=== PATIENT | female | born 1960 | race Caucasian/White ===

== ENCOUNTER → 2016-05-27 | Outpatient (CLI) | payer BC ==
[~2016-05-27] MED LIST: ACHD5005 PO; ACHYD1T PO; ADV1DS; ALB6.8IN; ALBU17AE23 IH; ALBU8.5H2; CALC-80; CARB200T6 PO; CARB400T PO; CETI10TA17; CRB200T; CYCL10TA9 PO; ESTR1TAB27 PO; FISH OIL 1,2001 EAC1; FLUT1DIS26; FURO-124 PO; FURO40TA4 PO; HCT25T; HCT25T PO; HYDR-3730 PO; HYDR-3816 PO; IBP200T; IBUP-30 PO; LISI10TA PO; LISI40TA; MAGN400T6 PO; MELO15TA14; MNTL10T; MONT10TA21 PO; MULT-298 PO; NF-ESOM40C PO; NFPRILOC40 PO; ONDA8TAB6 PO; OXYC-197 PO; PANT40TA2 PO; POTA10CA43 PO; POTA10TA10 PO; POTA99TA21 PO; PRD20T PO; PROP1TAB77; RNT150T; TYLENOL EXTRA STRENG; VLS80C
--- OUTSIDE RECORDS SUMMARY | 2016-05-27 14:14 | XMS REPORT | Continuity of Care Document ---
Author Author [facility] Organization [facility] Address Unknown Phone Unavailable Care Team Providers Care Lift Team Technician Name Role Phone Brenton Martinez PCP [phone] Source Comments Some departments are not documenting in the electronic medical record. If you do not see the information that you expected, contact Release of Information in the Health Information Management department at [phone] for further assistance in locating additional records.[facility] Active Allergies and Adverse Reactions Allergen Noted Date Severity Reactions Comments Ciprofloxacin 11/21/2014 Low PALPITATIONS, AGITATION Contrast Dye Iv, Iodine 01/28/2008 SHORTNESS OF BREATH Containing Demerol 07/08/2007 HIVES Iodine 07/08/2007 SHORTNESS OF BREATH Latex 07/08/2007 SHORTNESS OF BREATH, ITCHING Morphine 07/08/2007 HIVES Shellfish Containing 01/28/2008 ANAPHYLAXIS Products Vistaril 07/08/2007 MENTAL STATUS CHANGES Current Medications Prescription Sig. Disp. Refills Start End Date Status Date carbamazepine (TEGRETOL) Take 600 mg by mouth at Active 200 mg tablet bedtime daily. DAILY MULTIPLE PO Take 1 Tab by mouth Active daily. ADVAIR DISKUS 250-50 Inhale 1 Puff by mouth Active mcg/Dose DsDv Every 12 Hours. SINGULAIR 10 mg Tab Take 10 mg by mouth Active Daily. At bedtime furosemide (LASIX) 40 mg Take 40 mg by mouth daily Active tablet as needed. estradiol (ESTRACE) 1 mg Take 1 mg by mouth daily. Active tablet pantoprazole DR Take 20 mg by mouth twice Active (PROTONIX) 20 mg tablet daily. albuterol (VENTOLIN HFA, Inhale 2 Puffs by mouth Active PROAIR HFA) 90 every 6 hours as needed mcg/actuation inhaler for Wheezing. acetaminophen (TYLENOL) Take 2 Tabs by mouth 30 Tab 1 11/30/19 Active 325 mg tablet every 6 hours as needed 15 for Pain. lisinopril (PRINIVIL; Take 20 mg by mouth Active ZESTRIL) 20 mg tablet daily. LORATADINE (CLARITIN PO) Take by mouth. Active fluconazole (DIFLUCAN) Take 200 mg by mouth Active 200 mg tablet daily. HYDROcodone-acetaminophen Take 1 Tab by mouth every Active (+) (NORCO) 7.5-325 mg 6 hours as needed for tablet Pain meloxicam (MOBIC) 15 mg Take 1 Tab by mouth 90 Tab 3 02/04/20 Active tablet daily. 15 Active Problems Problem Noted Date Right leg swelling 11/21/2014 Asthma 11/21/2014 Inflammatory arthritis 11/20/2014 Septic joint (HCC) 11/20/2014 Tibia fracture 07/11/2007 Immunizations Name Dates Previously Given Next Due Pneumococcal Vaccine 11/26/2014 (23-Rajni Adult) Social History Tobacco Use Types Packs/Day Years Used Date Never Smoker Smokeless Tobacco: Never Used Alcohol Use Drinks/Week oz/Week Comments Yes rare Last Filed Vital Signs Vital Sign Reading Time Taken Blood Pressure 108/73 12/26/2014 10:13 AM CDT Pulse 69 12/26/2014 10:13 AM CDT Temperature 37.1 C (98.8 F) 12/26/2014 10:13 AM CDT Respiratory Rate 18 12/07/2014 11:28 AM CDT Height 1.626 m (5' 4") 12/26/2014 10:13 AM CDT Weight 78.926 kg (174 lb) 12/26/2014 10:13 AM CDT Body Mass Index 29.85 12/26/2014 10:13 AM CDT Oxygen Saturation 99% 11/29/2014 2:03 PM CDT Plan of Care Health Maintenance Due Date Last Done Comments Hepatitis C Screening 1960 Physical (Comprehensive) 10/26/1966 Exam Pertussis Vaccine 10/26/1970 Tetanus Vaccine 10/26/1976 Cervical Cancer Screening 10/26/1980 Breast Cancer Screening 1999 Colorectal Cancer 10/26/2009 Screening Influenza Vaccine 11/22/2015 Results from Last 3 Months Not on file
--- NOTE | 2016-05-27 17:55 | Diagnostic Imaging Report ---
INDICATION: Checkup of lower back surgery COMPARISON STUDY: Lumbar spine from 02-19-16. FINDINGS: Frontal and lateral views of the lumbar spine are obtained. Flexion-extension views were also obtained. The exam demonstrates posterior and interbody fusion of L4 and L5 with disc space narrowing at L5-S1. Hardware appears to be well positioned and aligned. A decompressed laminectomy is also present at this level. Disc space narrowing at L3-4 with minimal retrolisthesis stable. IMPRESSION: 1. Stable fusion and decompressive laminectomy of L4 and L5 2. Stable disc space narrowing and minimal retrolisthesis of L3-4. No change seen with flexion or extension. Dictated by: Dictated on workstation # [id number]
== END ==
LOC: RAD 14:08
PROVIDERS: ATTEND Nurse Practitioner
DX: M48.06 Spinal stenosis, lumbar region (principal); Z98.1 Arthrodesis status
CPT/HCPCS: 72114

== ENCOUNTER → 2016-07-04 | Outpatient (CLI) | payer BC ==
--- NOTE | 2016-07-04 13:29 | Diagnostic Imaging Report ---
EXAMINATION: Three views of the left knee. INDICATION: Left knee pain. FINDINGS: There is no fracture, dislocation or radiopaque foreign body. There is a suggestion of a suprapatellar effusion. There are small osteophytes noted in the medial compartment and minimal osteophytes superiorly in the patella with no significant joint space loss. IMPRESSION: Mild osteoarthritis. Question of a suprapatellar joint effusion. Dictated by: Dictated on workstation # [id number]
== END ==
LOC: RAD 11:55
DX: M17.0 Bilateral primary osteoarthritis of knee (principal)
CPT/HCPCS: 73562

== ENCOUNTER → 2018-05-25 | Outpatient (CLI) | payer MEDICARE, OTHER ==
[~2018-05-25] MED LIST changes: +HYDR-34 PO; -HYDR-3816 PO; -OXYC-197 PO; +OXYC1TAB87 PO
--- NOTE | 2018-05-25 20:54 | Diagnostic Imaging Report ---
INDICATION: Routine screening. Comparison is made with prior mammogram from 02/19/2016 and 02/09/2015. 2-D and 3-D bilateral screening mammography was performed with a Computer Aided Detection (CAD) system. FINDINGS: Scattered fibroglandular densities are identified bilaterally. Overall parenchymal pattern appears to be stable. Scattered benign calcifications are seen. No definite spiculated mass or malignant appearing microcalcifications are identified. Axillae are unremarkable. IMPRESSION: No mammographic features suspicious for malignancy are identified. ACR BI-RADS Category 2: Benign findings. Result letter will be mailed to the patient. Note: At least 10% of breast cancer is not imaged by mammography. Dictated by: Dictated on workstation # [id number]
== END ==
LOC: RAD 08:19
DX: Z12.31 Encounter for screening mammogram for malignant neoplasm of breast (principal)
CPT/HCPCS: 77067

== ENCOUNTER → 2018-09-22 | Outpatient (CLI) | payer MEDICARE, OTHER ==
--- NOTE | 2018-09-22 11:13 | Diagnostic Imaging Report ---
PROCEDURE: MRI lumbar spine. TECHNIQUE: Multiplanar, multisequence MRI of the lumbar spine was performed without contrast. INDICATION: Low back pain. FINDINGS: The previous MRI lumbar spine exam performed on 04/24/2015 noted advanced degenerative facet and ligamentous disease at L4-L5 resulting in spinal stenosis and neuroforaminal encroachment. In the interval since the prior study, the patient has undergone a surgical procedure. There are now bilateral pedicle screws in place at L4 and L5. There is some deformity of the thecal sac when compared to the prior exam but the thecal sac is generous. There is no sign of central stenosis at this level, however there is moderate narrowing of the neuroforamen on the left. This is similar to the prior exam. In the interval since the previous study, trefoil stenosis has developed at the L3-L4 level. The AP diameter of the thecal sac is narrowed to 8.8 mm and there is also narrowing of the neuroforamen bilaterally at this level, particularly on the right. The remainder of the lumbar spine is unremarkable for spinal stenosis or nerve root encroachment. There is no sign of an acute bony abnormality or of a cord lesion. This T2 fat-saturated sagittal series does show increased signal in the musculature posterior to the thecal sac in the lumbar region. This may be due to mild edema/inflammation and could be a sequela of the patient's prior surgery. There is no mass or abscess visualized. IMPRESSION: 1. In the interval since the previous exam, the patient has undergone a posterior fusion of L4 and L5. The orthopedic hardware appears to be in good position and the spinal stenosis seen on the prior study is no longer evident. There is still moderate narrowing of the neuroforamen on the left at this level. 2. Also since the previous study, trefoil stenosis has developed at the L3-L4 level. There is also narrowing of the neuroforamen bilaterally, particularly on the right. 3. The remainder of the lumbar spine is unremarkable for spinal stenosis or nerve root encroachment. 4. There is no sign of an acute bony abnormality or of a cord lesion. 5. The abnormal signal in the soft tissues posterior to the lumbar spine seen on the T2 fat-saturated series may reflect edema/inflammation. There is no mass or abscess visualized, however. Dictated by: Dictated on workstation # [id number]
== END ==
LOC: RAD 09:52
PROVIDERS: ATTEND Nurse Practitioner Family
DX: M48.061 Spinal stenosis, lumbar region without neurogenic claudication (principal); Z98.1 Arthrodesis status
CPT/HCPCS: 72148

== ENCOUNTER → 2019-04-04 | Outpatient (CLI) | payer MEDICARE, OTHER ==
[~2019-04-04] VITALS: Ht 162 cm; Wt 132.0 kg
[~2019-04-04] MED LIST changes: -MAGN400T6 PO; +MAGN400T8 PO; +REGADENOSON 0.4 MG/5 ML SYR (LEXISCAN) IV ONE
[2019-04-04] MEDS: CATHETER FLUSH 10 ML SYR IV PRN ×2 (11:05→12:32)
[2019-04-04 12:30] VITALS: BP 187/70
--- NOTE | 2019-04-05 16:31 | STRESS TEST ---
DATE OF SERVICE: 04/04/2019 RESTING AND POST REGADENOSON TECHNETIUM-99M TETROFOSMIN SPECT CT IMAGING ORDERING PHYSICIAN: Dr. Templeton. PRIMARY PHYSICIAN: Dr. Martinez. CLINICAL DIAGNOSES: Shortness of breath, hypertension. Baseline images were carried out after injection of 10.64 mCi of technetium-99m Tetrofosmin. This was followed by 0.4 mg regadenoson and 29.8 mCi of technetium-99m Tetrofosmin for stress imaging. The electrocardiogram showed sinus rhythm at baseline. It did not change significantly with the regadenoson infusion. The patient tolerated the procedure well. Review of images at rest and following stress does not indicate any distinct perfusion defects consistent with significant myocardial ischemia or infarction. Gated images show normal global left ventricular systolic function with normal regional wall motion. Left ventricular ejection fraction is calculated to be 76%. Left ventricular end diastolic volume is 60 mL. TID is absent (0.93). CONCLUSIONS: 1. No evidence of any significant myocardial ischemia or infarction is seen. 2. Normal regional wall motion. 3. Normal global left ventricular systolic function with a calculated ejection fraction of 76%. Job ID: [id number] DocumentID: [id number] Dictated Date: 04/05/2019 13:49:56 Advertising Writer Date: 04/05/2019 16:30:33 Dictated By: ZAYNAB TEMPLETON MD, MA, FACP, FACC,
== END ==
LOC: CARD 10:47
PROVIDERS: ATTEND Internal Medicine Cardiovascular Disease
DX: I10 Essential (primary) hypertension (principal); E66.9 Obesity, unspecified; R06.02 Shortness of breath
CPT/HCPCS: 78452; 93017

== ENCOUNTER → 2019-04-05 | Outpatient (CLI) | payer MEDICARE, OTHER ==
[~2019-04-05] MED LIST changes: -REGADENOSON 0.4 MG/5 ML SYR (LEXISCAN) IV ONE
== END ==
LOC: CARD 13:35
PROVIDERS: ATTEND Internal Medicine Cardiovascular Disease
DX: E66.9 Obesity, unspecified (principal); I10 Essential (primary) hypertension
CPT/HCPCS: 93306

== ENCOUNTER → 2019-12-02 | Outpatient (CLI) | payer MEDICARE, OTHER ==
--- NOTE | 2019-12-02 10:16 | Diagnostic Imaging Report ---
INDICATION: Right knee pain. Time of exam 9:31 AM 3 views right knee were obtained. Alignment is normal. There is fairly significant lateral compartmental degenerative change with joint space narrowing and marginal spurring. There is milder medial and patellofemoral compartmental degenerative change. No fracture, dislocation or effusion is identified. IMPRESSION: Degenerative changes. No acute bony abnormality is detected. Dictated by: Dictated on workstation # [id number]
--- NOTE | 2019-12-02 14:47 | Diagnostic Imaging Report ---
INDICATION: Routine screening. COMPARISON is made with prior mammograms from 05/25/2018 and 02/19/2016. 2-D and 3-D bilateral screening mammography was performed with CAD. Scattered fibroglandular densities are identified bilaterally. Overall parenchymal pattern appears to be stable. There are scattered benign calcifications. No mass or malignant appearing microcalcifications are seen. Axillae are unremarkable. IMPRESSION: BI-RADS Category 2 No mammographic features suspicious for malignancy are identified. Dictated by: Dictated on workstation # [id number]
== END ==
LOC: RAD 09:15
DX: Z12.31 Encounter for screening mammogram for malignant neoplasm of breast (principal); M17.11 Unilateral primary osteoarthritis, right knee
CPT/HCPCS: 73562; 77063; 77067

== ENCOUNTER → 2021-02-26 | Outpatient (CLI) | payer MEDICARE, OTHER ==
[~2021-02-26] MED LIST changes: +CYCL10TA25 PO; -CYCL10TA9 PO; -MAGN400T8 PO; +MGX400T PO; -POTA99TA21 PO; +POTA99TA26 PO
--- NOTE | 2021-02-26 13:08 | Diagnostic Imaging Report ---
Indication: Right knee pain. TIME OF EXAM: 12:15 PM 3 views right knee demonstrate severe lateral compartmental degenerative change where there is complete loss of the joint space. This marginal osteophyte are mentioned. There is a myal-si-adsbgetc medial and patellofemoral compartmental degenerative change. No fracture, dislocation or effusion is identified. IMPRESSION: Degenerative changes. No acute bony abnormality is detected. Dictated by: Dictated on workstation # [id number]
--- NOTE | 2021-02-26 13:09 | Diagnostic Imaging Report ---
Indication: Back pain. TIME OF EXAM: 12:11 PM Curvature and alignment of the thoracic spine is normal. Vertebral body heights are well-maintained. No compression fracture seen. There is generalized thoracic spondylosis with variable disc space narrowing and marginal spurring. Pedicles and paraspinous line are intact. IMPRESSION: Thoracic spondylosis. No acute bony abnormality is detected. Dictated by: Dictated on workstation # [id number]
--- NOTE | 2021-02-26 13:09 | Diagnostic Imaging Report ---
Indication: Neck pain. TIME OF EXAM: 12:10 PM 3 views cervical spine were obtained. Curvature of the cervical spine is normal. There is minimal anterolisthesis C4 on C5 with minimal retrolisthesis C5 on C6. There is significant degenerative disc disease C5-C6 and C6-C7 levels with disc space narrowing and marginal spurring. The prevertebral tissues are normal. Odontoid is intact. No fractures are seen. IMPRESSION: Cervical spondylosis and listhesis. No acute bony abnormality is detected. Dictated by: Dictated on workstation # [id number]
== END ==
LOC: RAD 11:34
DX: M17.11 Unilateral primary osteoarthritis, right knee (principal); M47.813 Spondylosis without myelopathy or radiculopathy, cervicothoracic region; M43.12 Spondylolisthesis, cervical region
CPT/HCPCS: 72040; 72070; 73562

== ENCOUNTER → 2021-09-09 | Outpatient (CLI) | payer MEDICARE, OTHER ==
--- NOTE | 2021-09-09 11:04 | Diagnostic Imaging Report ---
INDICATION: Routine screening. COMPARISON is made with prior mammograms from 12/02/2019 and 05/25/2018. 2-D and 3-D bilateral screening mammography was performed with CAD. Scattered fibroglandular densities are identified bilaterally. The overall parenchymal pattern is stable. No dominant mass or malignant-appearing microcalcifications are seen. There are scattered benign calcifications bilaterally. Axillae are unremarkable. IMPRESSION: BI-RADS Category 2 No mammographic features suspicious for malignancy are identified. ACR BI-RADS Category 2: Benign findings. Result letter will be mailed to the patient. Note: At least 10% of breast cancer is not imaged by mammography. Dictated by: Dictated on workstation # [id number]
== END ==
LOC: RAD 09:00
PROVIDERS: ATTEND Family Medicine Sports Medicine
DX: Z12.31 Encounter for screening mammogram for malignant neoplasm of breast (principal)
CPT/HCPCS: 77063; 77067

== ENCOUNTER 2021-10-16 05:40 | Outpatient (RCR) | payer MEDICARE, OTHER ==
[~2021-10-16] VITALS: Ht 162.6 cm; Wt 112.9 kg
[2021-10-16] MEDS ORDERED: LISI40TA9 PO (14:57)
[2021-10-16] MEDS ORDERED: GABA800T10 PO (14:58)
[2021-10-16] MEDS ORDERED: FURO40TA4 PO (14:58)
[2021-10-16] MEDS ORDERED: MELO15TA39 PO (15:00)
[2021-10-16] MEDS ORDERED: MONT-40 PO (15:00)
[2021-10-16] MEDS ORDERED: FLUT1DIS26 IH (15:00)
[2021-10-16] MEDS ORDERED: RT-ALBUINH INH (15:00)
== END 2021-10-20 | disposition home or self-care (01) ==
LOC: PREOP 05:40 → EDSTATUS 09:15 → PREOP 10-20 09:00
PROVIDERS: ATTEND Surgery
DX: Z01.818 Encounter for other preprocedural examination (principal)

== ENCOUNTER 2021-10-22 07:00 | Outpatient (RCR) | payer MEDICARE, OTHER ==
[~2021-10-22 07:00] MED LIST changes: +FLUT1DIS26 IH; +GABA800T10 PO; +LISI40TA9 PO; +MELO15TA39 PO; +MONT-40 PO; +RT-ALBUINH INH
== END 2021-11-20 ==
LOC: PREOP 07:00
PROVIDERS: ATTEND Surgery
DX: Z01.812 Encounter for preprocedural laboratory examination (principal); Z20.822 Contact with and (suspected) exposure to COVID-19
CPT/HCPCS: 87636

== ENCOUNTER 2021-10-29 06:58 | Day surgery (SDC) | payer MEDICARE, OTHER ==
[~2021-10-29] VITALS: Ht 162 cm; Wt 112.9 kg
[2021-10-29] MEDS ORDERED: LACTATED RINGERS 1,000 ML IV STA (07:07)
[2021-10-29] MEDS ORDERED: HURRICAINE EXT TUBE (BENZOCAINE) XX PRN (07:15)
[2021-10-29 07:21] VITALS: BP 135/57
[2021-10-29] MEDS ORDERED: PROPOFOL INJECTION 50 ML IV ONE (08:14)
[2021-10-29] MEDS ORDERED: MIDAZOLAM 2 MG/2 ML (VERSED) VIAL ONE (08:14)
[2021-10-29 08:45] VITALS: BP 109/60
[2021-10-29 08:50] VITALS: BP 105/55
--- NOTE | 2021-10-29 08:52 | Progress Note-Post Operative ---
Post-Operative Progess Note Surgeon (s)/Landscape Architect (s) Surgeon ARPAN LANDRY DO Landscape Architect: na Pre-Operative Diagnosis GERD, screening colonoscopy Post-Operative Diagnosis slight gastritis, benign gastric polyps, small hiatal hernia, diverticulosis Procedure & Operative Findings Date of Procedure 10/29/21 Procedure Performed/Findings egd c biopsies, colonoscopy Anesthesia Type per mailing machine assistant Estimated Blood Loss Estimated blood loss (mL): none Specimens/Packing Specimens Removed antrum, ge ARPAN LANDRY DO Oct 29, 2021 08:52
--- NOTE | 2021-10-29 08:55 | Discharge Inst-Simple/Standard ---
Discharge Inst-Standard Discharge Medications New, Converted or Re-Newed RX: RX on Chart Patient Instructions/Follow Up Plan of Care/Instructions/FU: 2 weeks Tami Activity as Tolerated: Yes Discharge Diet: Regular Diet ARPAN LANDRY DO Oct 29, 2021 08:55
[2021-10-29 09:10] VITALS: BP 112/49
--- NOTE | 2021-10-29 13:56 | Anesthesia-General Post-Op ---
MAC Patient Condition Mental Status/LOC: Same as Preop Cardiovascular: Satisfactory Nausea/Vomiting: Absent Respiratory: Satisfactory Pain: Controlled Complications: Absent Post Op Complications Complications None Follow Up Care/Instructions Patient Instructions None needed. Anesthesiology Discharge Order Discharge Order Patient is doing well, no complaints, stable vital signs, no apparent adverse anesthesia problems. No complications reported per nursing. JOVAN FORMAN CRNA Oct 29, 2021 13:56
--- NOTE | 2021-10-29 13:59 | OPERATIVE REPORT ---
DATE OF SERVICE: 10/29/2021 PREOPERATIVE DIAGNOSES: Gastroesophageal reflux disease and screening colonoscopy. POSTOPERATIVE DIAGNOSES: Slight gastritis, benign gastric polyps, small hiatal hernia, diverticulosis. PROCEDURE: EGD with biopsies, colonoscopy. SURGEON: Arpan Garrett DO ANESTHESIA: Per FORMULA MAKER. ESTIMATED BLOOD LOSS: None. COMPLICATIONS: None. SPECIMENS: Antrum, GE junction. INDICATIONS: The patient is a 61-year-old female with GERD symptoms needing screening colonoscopy. She understands risks and benefits of procedure and wishes to proceed. Consent was signed in the chart. DESCRIPTION OF PROCEDURE: The patient was taken to the endoscopy suite, placed in the left lateral recumbent position. Timeout was performed. Scope was inserted in mouth, down the esophagus, stomach and into the duodenum without difficulty. No polyps, masses or ulcerations within the duodenum. Scope was slowly retracted back into the stomach where it was further insufflated. Slight gastritis in the antral area. Biopsy of the antrum was obtained. A few benign appearing polyps throughout the stomach. Scope was retroflexed noting a very small hiatal hernia, evidence of previous sleeve gastrectomy. Scope was returned to its normal position, slowly withdrawn to distal esophagus. Biopsy of GE junction was obtained. Scope was slowly retracted back to completely remove noting no other pathology. Digital rectal exam was performed. No palpable polyps, masses or ulcerations. Scope was inserted in the rectum and advanced all the way to cecum with minimal difficulty. Prep was adequate. Scope was slowly retracted back. No polyps, masses or ulcerations within the cecum, ascending, transverse, descending and sigmoid colon, a minimal amount of diverticulosis present, more on the left side of the colon. Once in the rectum, scope was retroflexed noting a few fibroepithelial appearing polyps. Scope was returned to its normal position, slowly withdrawn until completely removed. The patient tolerated procedure well without any complications. She was taken to recovery room in stable condition. Job ID: [id number] DocumentID: [id number] Dictated Date: 10/29/2021 08:57:57 Mine Deputy Date: 10/29/2021 13:59:27 Dictated By: ARPAN GARRETT DO
== END 2021-10-29 09:30 | disposition home or self-care (01) ==
LOC: ENDO 06:58
PROVIDERS: ATTEND Surgery
DX: Z12.11 Encounter for screening for malignant neoplasm of colon (principal); K29.50 Unspecified chronic gastritis without bleeding; K31.7 Polyp of stomach and duodenum; K44.9 Diaphragmatic hernia without obstruction or gangrene; K57.30 Diverticulosis of large intestine without perforation or abscess without bleeding; K62.89 Other specified diseases of anus and rectum; K22.89 Other specified disease of esophagus; K21.9 Gastro-esophageal reflux disease without esophagitis; E66.9 Obesity, unspecified; Z68.41 Body mass index [BMI] 40.0-44.9, adult; Z91.041 Radiographic dye allergy status; Z91.040 Latex allergy status; Z79.899 Other long term (current) drug therapy; Z88.5 Allergy status to narcotic agent
CPT/HCPCS: 88305; 88342

== ENCOUNTER → 2022-01-28 | Outpatient (CLI) | payer MEDICARE, OTHER | LOC: CARD 11:02 | PROVIDERS: ATTEND Nurse Practitioner Family | DX: I35.1 Nonrheumatic aortic (valve) insufficiency (principal) | CPT/HCPCS: 93306 ==

== ENCOUNTER 2022-06-18 08:18 | Emergency (ER) | payer MEDICARE, OTHER ==
[~2022-06-18] VITALS: Ht 160 cm; Wt 108.0 kg
--- NOTE | 2022-06-18 08:32 | ED Cardiac General ---
History of Present Illness General Chief Complaint: Cardiac/General Problems Stated Complaint: PALPITATIONS Nursing Triage Note: PT AMB TO RM 7 PT CO OF HR RACING AND SOME DIZZINESS. PT IS ON DAY 9 OF COVID. PT DENIES C/P AT THIS X. DENIES SOA AT THIS X. STATES STARTED AT 0300 THIS AM Source: patient Exam Limitations: no limitations History of Present Illness Date Seen by Provider: Jun 18, 2022 Time Seen by Provider: 08:19 Initial Comments Patient is a 61-year-old female brought to the emergency room with family chief complaint heart racing "jumping around". She has never had anything like this before. She states she woke up at 3 AM to go to the bathroom and then noticed her symptoms. She was able to get back in the bed but woke up with the same. She feels a little dizzy. No shortness of breath no chest pain. She takes medication for hypertension. She has never had atrial fibrillation before. She is on day 9 of a COVID diagnosis. She denies recent fevers or chills. She states she only had about 4 days of symptoms with the COVID and feels back to her normal self. She has had problems with dizziness and instability due to 1 leg being shorter than the other in the past. She has had falls. Timing/Duration: 4-6 hours Severity: moderate Activities at Onset: sleep Modifying Factors: improves with other (Tried to cough to convert herself but this did not work) NTG SL VIDEO PRODUCTION ENGINEER: No ASA po VIDEO PRODUCTION ENGINEER: No Associated Systoms: Other (Dizziness) Allergies and Home Medications Allergies Coded Allergies: Iodinated Contrast Media (Unverified Allergy, Mild, AIRWAY PROBLEMS, 07/26/09) Shellfish (Unverified Allergy, Mild, AIRWAY PROBLEMS, 07/26/09) meperidine (Verified Allergy, Mild, HIVES, 07/26/09) morphine (Verified Allergy, Mild, HIVES, 07/26/09) ciprofloxacin (Verified Allergy, Unknown, 11/17/14) latex (Unverified Allergy, Unknown, 04/28/07) meperidine HCl (Unverified Allergy, Unknown, 10/24/10) methocarbamol (Unverified Allergy, Unknown, 10/16/21) hydroxyzine (Unverified Adverse Reaction, Mild, HYPERACTIVE, 07/26/09) Patient Home Medication List Home Medication List Reviewed: Yes Albuterol Sulfate (Ventolin Hfa) 1 Puff Puff, 1 PUFF INH PRN, (Reported) Entered as Reported by: MELANIE SCHULTZ on 10/16/21 1500 Apixaban (Eliquis) 5 Mg Tablet, 5 MG PO BID Prescribed by: JUWAN CORONA on 06/18/22 0935 Carbamazepine (Carbamazepine) 200 Mg Tablet, 600 MG PO HS, (Reported) Entered as Reported by: JAMAL FONG on 12/07/14 145 Diltiazem HCl (Cardizem Cd) 240 Mg Cap.er.24h, 240 MG PO DAILY Prescribed by: JUWAN CORONA on 06/18/22 0935 Estradiol (Estrace) 1 Mg Tablet, 1 MG PO DAILY, (Reported) Entered as Reported by: GERI SOTO on 05/11/12 2210 Fluticasone/Salmeterol (Advair 250-50 Diskus) 250 Mcg-50 Mcg/Dose Blst.w.dev, 1 EACH IH DAILY, (Reported) Entered as Reported by: MELANIE SCHULTZ on 10/16/21 1500 Furosemide (Furosemide) 40 Mg Tablet, 40 MG PO DAILY, (Reported) Entered as Reported by: MELANIE SCHULTZ on 10/16/21 145 Gabapentin (Gabapentin) 800 Mg Tablet, 800 MG PO TID, (Reported) Entered as Reported by: MELANIE SCHULTZ on 10/16/21 145 Hydrocodone Bit/Acetaminophen (Lortab 7.5 Mg Tablet) 1 Each Tablet, 1 EACH PO Q6H PRN for PAIN, (Reported) Entered as Reported by: JAMAL FONG on 12/07/14 145 Lisinopril (Lisinopril) 40 Mg Tablet, 40 MG PO DAILY, (Reported) Entered as Reported by: MELANIE SCHULTZ on 10/16/21 145 Meloxicam (Meloxicam) 15 Mg Tablet, 15 MG PO DAILY, (Reported) Entered as Reported by: MELANIE SCHULTZ on 10/16/21 1500 Montelukast Sodium (Montelukast Sodium) 10 Mg Tablet, 10 MG PO HS, (Reported) Entered as Reported by: MELANIE SCHULTZ on 10/16/21 1500 Multivitamin/Iron/Folic Acid (Multi Complete-Iron Tablet) 1 Each Tablet, 1 EACH PO DAILY, (Reported) Entered as Reported by: JAMAL FONG on 12/07/14 1454 Pantoprazole Sodium (Protonix) 40 Mg Tablet.dr, 40 MG PO BID, (Reported) Entered as Reported by: JAMAL FONG on 12/07/14 145 Potassium Chloride (Potassium Chloride) 10 Meq Tablet.er, 20 MEQ PO DAILY, (Reported) Entered as Reported by: JAMAL FONG on 12/07/14 1454 Review of Systems Review of Systems Constitutional: see HPI EENTM: No Symptoms Reported Respiratory: No Symptoms Reported Cardiovascular: Irregular Heart Rate, Palpitations Gastrointestinal: No Symptoms Reported Genitourinary: No Symptoms Reported Musculoskeletal: no symptoms reported Skin: no symptoms reported Psychiatric/Neurological: Other (Mild dizziness) All Other Systems Reviewed Negative Unless Noted: Yes Past Rflsvjg-Sxkrjk-Ctbetw Hx Patient Social History Tobacco Use?: No Substance use?: No Alcohol Use?: No Pt feels they are or have been: No Immunizations Up To Date Tetanus Booster (TDap): Less than 5yrs PED Vaccines UTD: Yes Influenza Vaccine Up-to-Date: No; Not Current Seasonal Allergies Seasonal Allergies: Yes Past Medical History Surgery/Hospitalization HX: SEE ATTATCHED LIST Surgeries: Yes (GASTRIC BANDING, HEMORRHIOD, RIGHT ANKLE X5) Gallbladder, Hysterectomy, Orthopedic Respiratory: Yes Asthma Cardiac: Yes Hypertension Neurological: Yes (LAST SEIZURE 2000) Seizure Disorder 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 Sexually Transmitted Disease: No Genitourinary: No Gastrointestinal: Yes (GASTRIC BANDING) Gastroesophageal Reflux Musculoskeletal: Yes (R LEG SEVERAL) Arthritis, Fractures Endocrine: No HEENT: No Cancer: No Psychosocial: No Integumentary: No Blood Disorders: No Adverse Reaction/Blood Tranf: No Family Medical History Arthritis G8 SISTER Diabetes mellitus 19 FATHER Hypertension 19 FATHER 19 MOTHER G8 BROTHER G8 SISTER Myocardial infarction 19 FATHER Thyroid disease 19 FATHER No Pertinent Family Hx Physical Exam Vital Signs Vital Signs - First Documented 06/18/22 08:20 Temp 36.8 Pulse 172 Resp 14 B/P (MAP) 124/101 (109) Pulse Ox 98 Capillary Refill : Less Than 3 Seconds Height, Weight, BMI Height: 5'4.00" Weight: 225lbs. 0.0oz. [id number]; 42.00 BMI Method: General Appearance: No Apparent Distress, WD/WN HEENT: PERRL/EOMI Neck: Normal Inspection Respiratory: Lungs Clear, Normal Breath Sounds, No Accessory Muscle Use, No Respiratory Distress Cardiovascular: Normal Peripheral Pulses, Irregularly Irregular, Tachycardia (160s to 170) Gastrointestinal: Non Tender, Soft Extremity: Normal Capillary Refill, Normal Inspection, Normal Range of Motion, Non Tender, No Calf Tenderness, No Pedal Edema Neurologic/Psychiatric: Alert, Oriented x3, No Motor/Sensory Deficits, Normal Mood/Affect, electric distribution checker II-XII Norm as Tested Skin: Normal Color, Warm/Dry Progress/Results/Core Measures Results/Orders Lab Results Laboratory Tests Test 06/18/22 08:30 Range/Units White Blood Count 7.9 4.3-11.0 10^3/uL Red Blood Count 4.84 3.80-5.11 10^6/uL Hemoglobin 14.6 11.5-16.0 g/dL Hematocrit 43 35-52 % Mean Corpuscular Volume 89 80-99 fL Mean Corpuscular Hemoglobin 30 25-34 pg Mean Corpuscular Hemoglobin Concent 34 32-36 g/dL Red Cell Distribution Width 13.5 10.0-14.5 % Platelet Count 382 130-400 10^3/uL Mean Platelet Volume 9.0 9.0-12.2 fL Immature Granulocyte % (Auto) 1 % Neutrophils (%) (Auto) 54 42-75 % Lymphocytes (%) (Auto) 35 12-44 % Monocytes (%) (Auto) 10 0-12 % Eosinophils (%) (Auto) 1 0-10 % Basophils (%) (Auto) 0 0-10 % Neutrophils # (Auto) 4.2 1.8-7.8 10^3/uL Lymphocytes # (Auto) 2.7 1.0-4.0 10^3/uL Monocytes # (Auto) 0.8 0.0-1.0 10^3/uL Eosinophils # (Auto) 0.1 0.0-0.3 10^3/uL Basophils # (Auto) 0.0 0.0-0.1 10^3/uL Immature Granulocyte # (Auto) 0.1 0.0-0.1 10^3/uL Prothrombin Time 13.1 12.2-14.7 SEC INR Comment 0.9 0.8-1.4 Activated Partial Thromboplast Time 27 24-35 SEC Sodium Level 136 135-145 MMOL/L Potassium Level 3.8 3.6-5.0 MMOL/L Chloride Level 99 98-107 MMOL/L Carbon Dioxide Level 26 21-32 MMOL/L Anion Gap 11 5-14 MMOL/L Blood Urea Nitrogen 10 7-18 MG/DL Creatinine 0.70 0.60-1.30 MG/DL Estimat Glomerular Filtration Rate 98 BUN/Creatinine Ratio 14 Glucose Level 108 H 70-105 MG/DL Calcium Level 9.3 8.5-10.1 MG/DL Corrected Calcium 9.1 8.5-10.1 MG/DL Magnesium Level 2.0 1.6-2.4 MG/DL Total Bilirubin 0.4 0.1-1.0 MG/DL Aspartate Amino Transf (AST/SGOT) 30 5-34 U/L Alanine Aminotransferase (ALT/SGPT) 63 H 0-55 U/L Alkaline Phosphatase 58 40-136 U/L Myoglobin 41.8 10.0-92.0 NG/ML Troponin I < 0.028 <0.028 NG/ML Total Protein 7.7 6.4-8.2 GM/DL Albumin 4.2 3.2-4.5 GM/DL My Orders Orders - JUWAN CORONA MD Ekg Tracing (06/18/22 08:21) Cbc With Automated Diff (06/18/22 08:32) Magnesium (06/18/22 08:32) Chest 1 View, Ap/Pa Only (06/18/22 08:32) Ekg Tracing (06/18/22 08:32) Comprehensive Metabolic Panel (06/18/22 08:32) Myoglobin Serum (06/18/22 08:32) Protime With Inr (06/18/22 08:32) Partial Thromboplastin Time (06/18/22 08:32) O2 (06/18/22 08:32) Monitor-Rhythm Ecg Trace Only (06/18/22 08:32) Lipid Panel (06/19/22 06:00) Ed Iv/Invasive Line Start (06/18/22 08:32) Apixaban Tablet (Eliquis Tablet) (06/18/22 08:45) Etomidate Injection (Amidate Injection) (06/18/22 08:45) Ns Iv 1000 Ml (Sodium Chloride 0.9%) (06/18/22 08:45) Troponin I [place] (06/18/22 08:30) Ekg Tracing (06/18/22 08:45) Medications Given in ED Current Medications Medications Dose Ordered Sig/Devon Route Start Time Stop Time Status Last Admin Dose Admin Apixaban 5 mg ONCE ONCE PO 06/18/22 08:45 06/18/22 08:46 DC 06/18/22 08:42 5 MG Vital Signs/I&O 06/18/22 08:20 Temp 36.8 Pulse 172 Resp 14 B/P (MAP) 124/101 (109) Pulse Ox 98 Blood Pressure Mean: 109 Progress Progress Note : Time: 09:31 Progress Note Patient seen and evaluated, 61-year-old with palpitations. Evaluation today includes physical exam, CBC, Chem-12, troponin, coags, EKG x2 and chest x-ray. Patient's physical exam remarkable for alert and oriented 61-year-old female who appears healthy rapid irregular heartbeat consistent with A-fib. Slightly hypertensive. Lungs are clear abdomen is soft no lower extremity edema. No neurologic deficits noted. Differential diagnosis includes atrial fibrillation with rapid ventricular response, acute coronary syndrome, metabolic derangement Labs reviewed, CBC is normal, chemistry is normal troponin is undetectable coags are normal. First EKG obtained at 08 25 reveals atrial fibrillation with rapid ventricular response. As preparations were being made for electrical cardioversion and discussion with Dr. Harris, sales and marketing executive the patient was getting undressed for the cardioversion and spontaneously converted into a normal sinus rhythm at 69 bpm. Second EKG was obtained at 08 48. Symptoms resolved. Chest x-ray was reviewed, also within normal limits no effusions, infiltrate or pulmonary vascular congestion. Patient was continued to be monitored for another 45 minutes and remained asymptomatic. Dr. Templeton indicated he would like the patient started on p.o. Cardizem as well as Eliquis. I have had this discussion with the patient and her family members are at the bedside. Precautions regarding blood thinners communicated. I advised her to call Dr. Harris's office this morning for a follow-up appointment next week. Blood pressure is great. No concerns at this time for an acute coronary syndrome, no indications of metabolic derangement. Her mother has a history of A-fib and my suspicion is that the patient has A-fib secondary to her recent COVID diagnosis. Patient is comfortable with plan of care. All questions are sought and answered. Patient is stable for discharge. Initial ECG Impression Date: Jun 18, 2022 Initial ECG Impression Time: 08:25 Initial ECG Rate: 147 Initial ECG Rhythm: A Fib/Flutter Initial ECG Impression: Atrial Fibrillation w/RVR EKG : EKG Time: 08:48 Rate: 69 Rhythm: Normal Sinus Intervals: Normal ECG Comparisson: Changed ECG Impression: Normal Diagnostic Imaging Diagonstic Imaging: Xray Plain Films/CT/US/NM/MRI: chest Comments [email or web address] [place], [place] NAME: GERARDO HARRIS [facility] REC#: [id number] PT STATUS: REG ER : 1960 PHYSICIAN: JUWAN CORONA MD ADMIT DATE: 06/18/22/ER Draft Date of Exam:06/18/22 CHEST 1 VIEW, AP/PA ONLY INDICATION: Chest pain. TECHNIQUE: Single view chest 8:42 AM. CORRELATION STUDY: None FINDINGS: The heart size, mediastinal configuration and pulmonary vascularity are within normal limits. The lungs are clear with no consolidating infiltrate. There is no significant effusion or pneumothorax. IMPRESSION: 1. Negative appearing single view chest. Dictated on workstation # [id number] Dict: 06/18/22 0859 Trans: 06/18/22 0859 DO [id number] Interpreted by: PARMJIT GOOD DO Electronically signed by: Departure Communication (Admissions) Time/Spoke to Consulting Phy: 08:[address] Templeton; ok with electrical cardioversion; Eliquis; cardixem CD 240mg/d; if labs ok can send home Impression Primary Impression: Atrial fibrillation with rapid ventricular response Disposition: 01 HOME, SELF-CARE Condition: Improved Departure-Patient Inst. Decision time for Depature: 09:34 Referrals: ZAY[facility]B TEMPLETON MD [facility] MARLIN MCKEON MD (PCP) Primary Care Physician Patient Instructions: Atrial Fibrillation Add. Discharge Instructions: We will be starting you on Cardizem CD2 140 mg daily. You can start this today. I have also sent a prescription to your pharmacy for Eliquis. Please follow packaging instructions. You will ultimately be taking this twice daily. Dr. Harris will discuss with you further evaluation and management of this episode of atrial fibrillation. You should not take additional aspirin or medications like Aleve or ibuprofen while taking Eliquis as it will increase your risk of bleeding. Be very careful while walking especially on uneven ground if you are at baseline unstable when you walk. If you have any falls or even minor head injuries please return to the emergency room for reevaluation. Please call Dr. Templeton's office today for a follow-up appointment next week. Scripts Apixaban (Eliquis) 5 Mg Tablet 5 MG PO BID for 30 Days, #74 TAB TAKE 2 TABLETS BID X 7 DAYS, THEN 1 TABLET BID Prov: JUWAN CORONA MD 06/18/22 Diltiazem HCl (Cardizem Cd) 240 Mg Cap.er.24h 240 MG PO DAILY for 30 Days, #30 CAP Prov: JUWAN CORONA MD 06/18/22 Copy Copies To 1: ZAYNAB TEMPLETON MD FACP [facility] JUWAN CORONA MD Jun 18, 2022 08:32
[2022-06-18 08:39] LABS: BASOPHILS % (AUTO) 0 % (0-10); EOSINOPHILS # (AUTO) 0.1 10^3/uL (0.0-0.3); EOSINOPHILS % (AUTO) 1 % (0-10); HEMATOCRIT 43 % (35-52); HEMOGLOBIN 14.6 g/dL (11.5-16.0); LYMPHOCYTES # (AUTO) 2.7 10^3/uL (1.0-4.0); LYMPHOCYTES % (AUTO) 35 % (12-44); MEAN CORPUSCULAR HEMOGLOBIN 30 pg (25-34); MEAN CORPUSCULAR HGB CONC 34 g/dL (32-36); MEAN CORPUSCULAR VOLUME 89 fL (80-99); MONOCYTES # (AUTO) 0.8 10^3/uL (0.0-1.0); MONOCYTES % (AUTO) 10 % (0-12); NEUTROPHILS # (AUTO) 4.2 10^3/uL (1.8-7.8); NEUTROPHILS % (AUTO) 54 % (42-75); PLATELET COUNT 382 10^3/uL (130-400); WHITE BLOOD COUNT 7.9 10^3/uL (4.3-11.0)
[2022-06-18] MEDS ORDERED: ETOMIDATE IV SOLN 20 MG/10 ML VIAL IV ONE (08:45)
[2022-06-18] MEDS ORDERED: NS IV 1000 ML 1,000 ML IV SCH (08:45)
[2022-06-18] MEDS ORDERED: APIXABAN 5 MG (ELIQUIS) TABLET PO ONE (08:45)
[2022-06-18 08:52] LABS: ALBUMIN 4.2 GM/DL (3.2-4.5)
[2022-06-18 08:53] LABS: CHLORIDE 99 MMOL/L (98-107); INR 0.9 (0.8-1.4); POTASSIUM 3.8 MMOL/L (3.6-5.0); PROTHROMBIN TIME PATIENT 13.1 SEC (12.2-14.7); SODIUM 136 MMOL/L (135-145)
[2022-06-18 08:54] LABS: CALCIUM 9.3 MG/DL (8.5-10.1)
[2022-06-18 08:55] LABS: GLUCOSE 108 MG/DL (70-105); TOTAL PROTEIN 7.7 GM/DL (6.4-8.2)
[2022-06-18 08:56] LABS: CARBON DIOXIDE 26 MMOL/L (21-32)
[2022-06-18 08:57] LABS: BILIRUBIN,TOTAL 0.4 MG/DL (0.1-1.0)
[2022-06-18 08:58] LABS: ALKALINE PHOSPHATASE 58 U/L (40-136)
[2022-06-18 08:59] LABS: GFR ESTIMATED 98
[2022-06-18 09:00] LABS: BUN/CREATININE RATIO 14
--- NOTE | 2022-06-18 09:00 | Diagnostic Imaging Report ---
INDICATION: Chest pain. TECHNIQUE: Single view chest 8:42 AM. CORRELATION STUDY: None FINDINGS: The heart size, mediastinal configuration and pulmonary vascularity are within normal limits. The lungs are clear with no consolidating infiltrate. There is no significant effusion or pneumothorax. IMPRESSION: 1. Negative appearing single view chest. Dictated by: Dictated on workstation # [id number]
[2022-06-18 09:01] LABS: ALANINE AMINOTRANSFERASE 63 U/L (0-55)
[2022-06-18] MEDS ORDERED: DILT240C86 PO (09:35)
[2022-06-18] MEDS ORDERED: APIX5TAB PO (09:35)
[2022-06-18 09:44] VITALS: BP 102/74
== END 2022-06-18 09:49 | disposition home or self-care (01) ==
LOC: EDUNIT# 08:18 → ER 08:21
DX: I48.91 Unspecified atrial fibrillation (principal); I10 Essential (primary) hypertension; Z86.16 Personal history of COVID-19; Z91.040 Latex allergy status; Z79.899 Other long term (current) drug therapy
CPT/HCPCS: 36415; 71045; 80053; 83735; 83874; 84484; 85025; 85610; 85730; 93005; 93041

== ENCOUNTER 2022-07-02 16:47 | Emergency (ER) | payer MEDICARE, OTHER ==
[~2022-07-02] VITALS: Ht 160 cm; Wt 110.0 kg
[~2022-07-02 16:47] MED LIST changes: +APIX5TAB PO; +DILT240C86 PO; +MONT-47 PO; -MONT10TA21 PO
--- NOTE | 2022-07-02 17:09 | ED Fall/Injury ---
General Chief Complaint: Trauma-Non Activation Stated Complaint: LACERATION Source: patient, family Exam Limitations: no limitations History of Present Illness Date Seen by Provider: Jul 02, 2022 Time Seen by Provider: 16:56 Initial Comments 61-year-old female presents emerged from today after a fall. 79-hour prior to arrival. She tripped and struck her face on the concrete. She has a laceration to her nose. No blurred vision or diplopia. No malocclusion. She did hit her head but denies loss of consciousness. No dizziness. Last tetanus shot was in 2014. She is on Xarelto. All other systems reviewed and negative except documented per HPI. Voice recognition software was used to help create this chart Allergies and Home Medications Allergies Coded Allergies: Iodinated Contrast Media (Unverified Allergy, Mild, AIRWAY PROBLEMS, 07/26/09) Shellfish (Unverified Allergy, Mild, AIRWAY PROBLEMS, 07/26/09) meperidine (Verified Allergy, Mild, HIVES, 07/26/09) morphine (Verified Allergy, Mild, HIVES, 07/26/09) ciprofloxacin (Verified Allergy, Unknown, 11/17/14) latex (Unverified Allergy, Unknown, 04/28/07) meperidine HCl (Unverified Allergy, Unknown, 10/24/10) methocarbamol (Unverified Allergy, Unknown, 10/16/21) hydroxyzine (Unverified Adverse Reaction, Mild, HYPERACTIVE, 07/26/09) Patient Home Medication List Home Medication List Reviewed: Yes Albuterol Sulfate (Ventolin Hfa) 1 Puff Puff, 1 PUFF INH PRN, (Reported) Entered as Reported by: MELANIE SCHULTZ on 10/16/21 1500 Apixaban (Eliquis) 5 Mg Tablet, 5 MG PO BID Prescribed by: JUWAN CORONA on 06/18/22 0935 Carbamazepine (Carbamazepine) 200 Mg Tablet, 600 MG PO HS, (Reported) Entered as Reported by: JAMAL FONG on 12/07/14 1454 Diltiazem HCl (Cardizem Cd) 240 Mg Cap.er.24h, 240 MG PO DAILY Prescribed by: JUWAN CORONA on 06/18/22 0935 Estradiol (Estrace) 1 Mg Tablet, 1 MG PO DAILY, (Reported) Entered as Reported by: GERI SOTO on 05/11/12 2210 Fluticasone/Salmeterol (Advair 250-50 Diskus) 250 Mcg-50 Mcg/Dose Blst.w.dev, 1 EACH IH DAILY, (Reported) Entered as Reported by: MELANIE SCHULTZ on 10/16/21 1500 Furosemide (Furosemide) 40 Mg Tablet, 40 MG PO DAILY, (Reported) Entered as Reported by: MELANIE SCHULTZ on 10/16/21 145 Gabapentin (Gabapentin) 800 Mg Tablet, 800 MG PO TID, (Reported) Entered as Reported by: MELANIE SCHULTZ on 10/16/21 145 Hydrocodone Bit/Acetaminophen (Lortab 7.5 Mg Tablet) 1 Each Tablet, 1 EACH PO Q6H PRN for PAIN, (Reported) Entered as Reported by: JAMAL FONG on 12/07/14 145 Lisinopril (Lisinopril) 40 Mg Tablet, 40 MG PO DAILY, (Reported) Entered as Reported by: MELANIE SCHULTZ on 10/16/21 145 Meloxicam (Meloxicam) 15 Mg Tablet, 15 MG PO DAILY, (Reported) Entered as Reported by: MELANIE SCHULTZ on 10/16/21 1500 Montelukast Sodium (Montelukast Sodium) 10 Mg Tablet, 10 MG PO HS, (Reported) Entered as Reported by: MELANIE SCHULTZ on 10/16/21 1500 Multivitamin/Iron/Folic Acid (Multi Complete-Iron Tablet) 1 Each Tablet, 1 EACH PO DAILY, (Reported) Entered as Reported by: JAMAL FONG on 12/07/14 145 Pantoprazole Sodium (Protonix) 40 Mg Tablet.dr, 40 MG PO BID, (Reported) Entered as Reported by: JAMAL FONG on 12/07/14 145 Potassium Chloride (Potassium Chloride) 10 Meq Tablet.er, 20 MEQ PO DAILY, (Reported) Entered as Reported by: JAMAL FONG on 12/07/14 145 Review of Systems Review of Systems Constitutional: see HPI Past Imnsugy-Kzputz-Jdcikk Hx Patient Social History Tobacco Use?: No Use of E-Cig and/or Vaping dev: No Substance use?: No Alcohol Use?: No Immunizations Up To Date Tetanus Booster (TDap): Less than 5yrs PED Vaccines UTD: Yes Seasonal Allergies Seasonal Allergies: Yes Past Medical History Surgery/Hospitalization HX: SEE ATTATCHED LIST Surgeries: Yes (GASTRIC BANDING, HEMORRHIOD, RIGHT ANKLE X5) Gallbladder, Hysterectomy, Orthopedic Respiratory: Yes Asthma Cardiac: Yes Hypertension Neurological: Yes (LAST SEIZURE 2000) Seizure Disorder 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 Sexually Transmitted Disease: No Genitourinary: No Gastrointestinal: Yes (GASTRIC BANDING) Gastroesophageal Reflux Musculoskeletal: Yes (R LEG SEVERAL) Arthritis, Fractures Endocrine: No HEENT: No Cancer: No Psychosocial: No Integumentary: No Blood Disorders: No Adverse Reaction/Blood Tranf: No Family Medical History Reviewed Nursing Family Hx Arthritis G8 SISTER Diabetes mellitus 19 FATHER Hypertension 19 FATHER 19 MOTHER G8 BROTHER G8 SISTER Myocardial infarction 19 FATHER Thyroid disease 19 FATHER No Pertinent Family Hx Physical Exam Vital Signs Vital Signs - First Documented 07/02/22 17:04 Temp 36.4 Pulse 72 Resp 16 B/P (MAP) 158/85 (109) Pulse Ox 99 O2 Delivery Room Air Capillary Refill : Height, Weight, BMI Height: 5'4.00" Weight: 225lbs. 0.0oz. 102.621567sn; 42.00 BMI Method: General Appearance: WD/WN, no apparent distress HEENT: PERRL/EOMI, pharynx normal, other (Patient curvilinear laceration superior portion of the bridge of the nose. This is approximately 3 cm in maximum length. The edges are well opposed with no gapping. There is a skin tear beneath this with a very thin skin flap.) Neck: non-tender, full range of motion, supple, normal inspection Cardiovascular: regular rate, rhythm, no murmur Respiratory: chest non-tender, lungs clear, normal breath sounds Gastrointestinal: normal bowel sounds, non tender, soft Extremities: other (Patient has some bruising and ecchymosis to the right late ral arm near the elbow and forearm. No bony tenderness. Neurovascular and sensory intact.) Neurologic/Psychiatric: alert, normal mood/affect, oriented x 3 Skin: other (Ecchymosis and lacerations as described above) Progress/Results/Core Measures Results/Orders My Orders Orders - NELSY AIKEN DO Ct Head Wo (07/02/22 17:05) Dipht,Pertuss(Acell),Tet Adult (Boostrix (4/12/23 17:15) Medications Given in ED Current Medications Medications Dose Ordered Sig/Devon Route Start Time Stop Time Status Last Admin Dose Admin Diphtheria/ Tetanus/Acell Pertussis 0.5 ml ONCE ONCE IM 07/02/22 17:15 07/02/22 17:16 DC 07/02/22 17:15 0.5 ML Vital Signs/I&O 07/02/22 17:04 Temp 36.4 Pulse 72 Resp 16 B/P (MAP) 158/85 (109) Pulse Ox 99 O2 Delivery Room Air Departure Impression Primary Impression: Facial laceration Qualified Codes: S01.81XA - Laceration without foreign body of other part of head, initial encounter Additional Impression: Nasal bone fracture Qualified Codes: S02.2XXA - Fracture of nasal bones, initial encounter for closed fracture Disposition: HOME, SELF-CARE Condition: Stable Departure-Patient Inst. Referrals: MARLIN MCKEON MD (PCP/Family) Primary Care Physician Patient Instructions: Wound Care Add. Discharge Instructions: Your tetanus shot was updated in the emergency department today. Your CT scan is negative for any bleeding. You may have broken your nose however you appear to be breathing through it normally and there is no displacement. Continue your Xarelto as previously prescribed. Perform wound care as discussed. Return to the emergency department for any severe concerns. All discharge instructions reviewed with patient and/or family. Voiced understanding. NELSY AIKEN DO Jul 02, 2022 17:09
[2022-07-02] MEDS ORDERED: TETANUS,DIPTH,PERTUSS P/F (BOOSTRIX) 0.5 ML VIAL IM ONE (17:15)
--- NOTE | 2022-07-02 17:34 | Diagnostic Imaging Report ---
PROCEDURE: CT head without contrast. TECHNIQUE: Multiple contiguous axial images were obtained through the brain without the use of intravenous contrast. Auto Exposure Controls were utilized during the CT exam to meet ALARA standards for radiation dose reduction. INDICATION: Patient is anticoagulated and had head injury. I have no priors. FINDINGS: There is no intracranial hemorrhage. There is no hydrocephalus. No focal or generalized cerebral edema. There are fractures of the right greater than left nasal bones with presumed acute given the absence of evidence for healing and regional soft tissue swelling. No paranasal sinus blood. The orbits nonacute. There is no calvarial fracture deformity. There is some incidental incorporation of fat along the falx anteriorly, no pneumocephalus. IMPRESSION: Nasal bone fractures greater right. No intracranial hemorrhage or skull fracture. No other acute finding. Dictated by: Dictated on workstation # [id number]
[2022-07-02 17:53] VITALS: BP 163/78
== END 2022-07-02 17:55 | disposition home or self-care (01) ==
LOC: EDUNIT# 16:47 → ER 16:50
DX: S02.2XXA Fracture of nasal bones, initial encounter for closed fracture (principal); S50.11XA Contusion of right forearm, initial encounter; Z79.01 Long term (current) use of anticoagulants; Z91.040 Latex allergy status; Z23 Encounter for immunization; W01.198A Fall on same level from slipping, tripping and stumbling with subsequent striking against other object, initial encounter
CPT/HCPCS: 70450; 90715

== ENCOUNTER → 2022-07-22 | Outpatient (CLI) | payer MEDICARE, OTHER ==
[~2022-07-22] MED LIST changes: +CATHETER FLUSH 10 ML SYR IVP PRN; +REGADENOSON 0.4 MG/5 ML SYR (LEXISCAN) IV ONE
--- NOTE | 2022-07-23 21:38 | STRESS TEST ---
DATE OF SERVICE: 07/22/2022 RESTING AND POST REGADENOSON TECHNETIUM-99M TETROFOSMIN SPECT CT IMAGING ORDERING PHYSICIAN: Keya Pierre APRN. PRIMARY PHYSICIAN: Dr. Montesinos. CLINICAL DIAGNOSIS: Paroxysmal atrial fibrillation. Baseline images were carried out after injection of 10.72 mCi of technetium-99m tetrofosmin. This was followed by 0.4 mg of regadenoson and 30.3 mCi technetium-99m tetrofosmin for stress imaging. The electrocardiogram showed sinus rhythm at baseline and it did not change significantly with the regadenoson infusion. The patient noted some shortness of breath and a flushed feeling, which resolved in a few minutes. Review of images at rest and following stress indicates a small anteroseptal perfusion defect that appears to be transient. Gated images show normal global left ventricular systolic function with normal regional wall motion. Left ventricular ejection fraction is calculated to be 70%. CONCLUSIONS: 1. This study is suggestive of a small amount of anteroseptal ischemia (SDS 7). 2. Normal regional wall motion. 3. Normal global left ventricular systolic function with a calculated ejection fraction of 70%. Job ID: [id number] DocumentID: [id number] Dictated Date: 07/23/2022 16:44:02 Clip On Sunglasses Inspector Date: 07/23/2022 21:37:00 Dictated By: ZAYNAB MCKEON MD; DAT; FACP; FACC;
== END ==
LOC: CARD 07:34
PROVIDERS: ATTEND Nurse Practitioner Family
DX: I48.0 Paroxysmal atrial fibrillation (principal)
CPT/HCPCS: 78452; 93017; A9502

== ENCOUNTER 2022-07-29 10:48 | Day surgery (SDC) | payer MEDICARE, OTHER ==
[~2022-07-29] VITALS: Ht 162.6 cm; Wt 110.7 kg
[2022-07-29] VITALS (9 sets, daily range): BP systolic 118–166; BP diastolic 62–88
[~2022-07-29 10:48] MED LIST changes: -CATHETER FLUSH 10 ML SYR IVP PRN; -REGADENOSON 0.4 MG/5 ML SYR (LEXISCAN) IV ONE
[2022-07-29] MEDS ORDERED: LIDOCAINE 1% INJ 20 ML VIAL ONE (10:58)
[2022-07-29] MEDS ORDERED: NS IV 1000 ML 1,000 ML ONE (10:58)
[2022-07-29] MEDS ORDERED: HEParin (CATH LAB) 2,000 ML IV ONE (10:58)
[2022-07-29] MEDS ORDERED: NS IV 1000 ML 1,000 ML IV SCH ×2 (11:00→13:45)
[2022-07-29 11:20] LABS: HEMATOCRIT 41 % (35-52); HEMOGLOBIN 13.9 g/dL (11.5-16.0); MEAN CORPUSCULAR HEMOGLOBIN 30 pg (25-34); MEAN CORPUSCULAR HGB CONC 34 g/dL (32-36); MEAN CORPUSCULAR VOLUME 90 fL (80-99); MEAN PLATELET VOLUME 9.2 fL (9.0-12.2); PLATELET COUNT 401 10^3/uL (130-400)
[2022-07-29 11:33] LABS: PROTHROMBIN TIME PATIENT 13.6 SEC (12.2-14.7)
[2022-07-29] MEDS ORDERED: GABA300C PO (11:40)
[2022-07-29] MEDS ORDERED: GBPN600T PO (11:40)
[2022-07-29] MEDS ORDERED: LISI20TA26 PO (11:41)
[2022-07-29 11:42] LABS: ALANINE AMINOTRANSFERASE 22 U/L (0-55); ALBUMIN 4.8 GM/DL (3.2-4.5); ALKALINE PHOSPHATASE 60 U/L (40-136); BILIRUBIN,TOTAL 0.3 MG/DL (0.1-1.0); BUN/CREATININE RATIO 24; CALCIUM 9.4 MG/DL (8.5-10.1); CARBON DIOXIDE 25 MMOL/L (21-32); CHLORIDE 100 MMOL/L (98-107); CREATININE SERUM 0.76 MG/DL (0.60-1.30); GFR ESTIMATED 89; GLUCOSE 125 MG/DL (70-105); POTASSIUM 4.2 MMOL/L (3.6-5.0); SODIUM 135 MMOL/L (135-145); TOTAL PROTEIN 8.7 GM/DL (6.4-8.2)
[2022-07-29] MEDS ORDERED: DILT240C91 PO (11:42)
[2022-07-29] MEDS ORDERED: POTA-164 PO (11:43)
[2022-07-29] MEDS ORDERED: ESTR1TAB24 PO (11:44)
[2022-07-29] MEDS ORDERED: RIVA20TA PO (11:45)
[2022-07-29] MEDS ORDERED: LEVA1.2543 PO (11:48)
[2022-07-29] MEDS ORDERED: HYDR-3820 PO (11:48)
[2022-07-29] MEDS ORDERED: ALBU8.5H6 (11:48)
[2022-07-29] MEDS ORDERED: ASCO100024 PO (11:50)
[2022-07-29] MEDS ORDERED: VIT59LIQ PO (11:52)
[2022-07-29] MEDS ORDERED: PEDI18TA7 PO (11:52)
[2022-07-29] MEDS ORDERED: CHOL500044 PO (11:53)
[2022-07-29] MEDS ORDERED: CALC-722 PO (11:54)
[2022-07-29] MEDS ORDERED: OMEG12002 PO (11:56)
[2022-07-29] MEDS ORDERED: ZINC50TA51 PO (11:56)
[2022-07-29] MEDS ORDERED: UBID400C8 PO (11:57)
[2022-07-29] MEDS ORDERED: LORA10TA7 PO (11:57)
[2022-07-29] MEDS ORDERED: DICL20GE TP (11:58)
[2022-07-29] MEDS ORDERED: ZINC30TA2 PO (12:04)
[2022-07-29] MEDS ORDERED: diphenhydrAMINE 50 MG/ML INJ (BENADRYL) ONE (12:33)
[2022-07-29] MEDS ORDERED: fentaNYL INJ 100 MCG/2 ML AMP ONE (12:33)
[2022-07-29] MEDS ORDERED: MIDAZOLAM 5 MG/5 ML (VERSED) VIAL ONE (12:34)
[2022-07-29] MEDS ORDERED: HEParin 1000 UNIT/ML (10ML VIAL) FOR BOLUS ONE (12:34)
[2022-07-29] MEDS ORDERED: methylPREDNISolone 125 MG (Solu-MEDROL) VIAL ONE (12:34)
[2022-07-29] MEDS ORDERED: NITRO DRIP 25000 MCG/D5W 250 ML IV ONE (12:34)
[2022-07-29] MEDS ORDERED: VERAPAMIL 5 MG/2 ML (CALAN) VIAL IV ONE (12:34)
[2022-07-29] MEDS ORDERED: EPINEPHrine 0.1 MG/ML 10 ML (HOSPIRA) SYR ONE ×2 (12:59→13:13)
--- NOTE | 2022-07-29 13:39 | Cardiac Procedure Note-CS/ASA ---
Pre-Procedure Note Pre-Op Procedure Note Date of Available H&P: Jun 20, 2022 Date H&P Reviewed: July 29, 2022 Time H&P Reviewed: 12:00 History & Physical: H&P Reviewed Changes from last HP No changes except that subsequent MPI was abnormal and suggestive of ischemia (SDS 9). Card cath was recommended and informed consent obtained Moderate Sedation PreProcedure ASA Score 2 Airway Lungs Heart ASA score ASA 1: a normal healthy patient ASA 2: a patient with a mild systemic disease (mid diabetes, controlled hypertension, obesity ASA 3: a patient with a severe systemic disease that limits activity (angina, COPD, prior Myocardial infarction) ASA 4: a patient with an incapacitating disease that is a constant threat to life (CHF, renal failure) ASA 5: a moribund patient not expected to survive 24 hrs. (ruptured aneurysm) ASA 6: a declared brain- patient whose organs are being harvested. For emergent operations, add the letter E after the classification Mallampati Classification Grade 2 Sedation Plan Analgesia, Amnesia, Plan communicated to team members The patient is an appropriate candidate to undergo the planned procedure, sedation, and anesthesia. The patient immediately re-assessed prior to indication. ZAYNAB MCKEON MD FACP FAC CCDS July 29, 2022 13:39
[2022-07-29] MEDS ORDERED: PATIENT MAY USE OWN MEDS, ALL PO SCH (13:45)
--- NOTE | 2022-07-29 13:45 | Cardiac Cath Report ---
CARDIAC CATHETERIZATION DATE OF PROCEDURE: 07-29-22 INDICATION: Abnormal stress test HISTORY: The patient is a 61 year old female with chest discomfort and palp and an abnormal stress test PROCEDURES PERFORMED: 1. LHC; 2. Cor angio PROCEDURE DESCRIPTION: After informed consent and in the fasting state, left heart catheterization was performed through the R radial artery utilizing a 5 Czech system by percutaneous approach. TIG for cor angio. Pigtail for LHC and LV angio. All catheters were exchanged over a guidewire. HEMODYNAMICS: LVEDP 9 mmHg, no pressure gradient on pullback across the aortic valve CORONARY ANGIOGRAPHY: Left main coronary artery: LAD and LCx have separate, [id number] ostia Left anterior descending coronary artery: Ok Left circumflex coronary artery: Dominant, Ok Right coronary artery: Non-dominant, Ok LV ANGIO: ELLER projection, LVEF 60%, no wall motion abnormality in this projection IMPRESSION: 1. No angiographically significant CAD 2. LVEF 60% 3. LVEDP 9 mmHg ZAYNAB MCKEON MD FACP [facility] July 29, 2022 13:45
--- NOTE | 2022-07-29 13:48 | Discharge Inst-Cardiology ---
Discharge Inst-Cardiac Discharge Medications Continued Medications: Albuterol Sulfate (Ventolin Hfa) 1 Puff Puff 1 PUFF INH PRN, EA 1 PUFF = 90 MCG Ascorbic Acid (Vitamin C) 1,000 Mg Tablet 1000 MG PO DAILY, TAB Calcium Carb & Citrate/Vit D3 (Citracal + D ER Tablet) 600MG-12.5 Tablet.er 2 EACH PO DAILY, TAB Carbamazepine (Carbamazepine) 200 Mg Tablet 600 MG PO HS, TAB TAKE 3 (200MG) TABS Cholecalciferol (Vitamin D3) (Vitamin D3) 125 Mcg (5000 Unit) Tablet 125 MCG PO DAILY, TAB Diclofenac Sodium (Voltaren Arthritis Pain) 1 % Gel..gram. 1 APPLIC TP DAILY PRN for PAIN, EA Diltiazem HCl (Diltiazem 24Hr ER) 240 Mg Cap.er.24h 240 MG PO DAILY Estradiol (Estradiol Tablet) 1 Mg Tablet 1 MG PO DAILY Fluticasone/Salmeterol (Advair 250-50 Diskus) 250 Mcg-50 Mcg/Dose Blst.w.dev 1 EACH IH BID Furosemide (Furosemide) 40 Mg Tablet 40 MG PO DAILY, TAB Gabapentin (Gabapentin) 600 Mg Tablet 600 MG PO BID, TAB TAKES ALONG WITH (300MG) CAP TO TOTAL 900MG Gabapentin (Neurontin) 300 Mg Capsule 300 MG PO BID, CAP TAKES ALONG WITH (600MG) CAP TO TOTAL 900MG Hydrocodone/Acetaminophen (Hydrocodone-Acetamin 10-325 mg) 10 Mg-325 Mg Tablet 1 EA PO Q4H PRN for PAIN-MODERATE (5-7) Levalbuterol HCl (Levalbuterol HCl) 1.25 Mg/3 Ml Vial.neb 1 VIAL PO Q6H PRN for SHORTNESS OF BREATH Lisinopril (Lisinopril) 20 Mg Tablet 20 MG PO DAILY, TAB Loratadine (Loratadine) 10 Mg Tablet 10 MG PO DAILY PRN for ALLERGIES, TAB Meloxicam (Meloxicam) 15 Mg Tablet 15 MG PO DAILY, TAB Montelukast Sodium (Montelukast Sodium) 10 Mg Tablet 10 MG PO HS, TAB Ce[place]-3/Dha/Epa/Fish Oil (Fish Oil 1,200 mg Softgel) 1,200 Mg (144 Mg-216 Mg) Capsule 1200 MG PO BID, CAP Pantoprazole Sodium (Protonix) 40 Mg Tablet.dr 40 MG PO DAILY, TAB Pediatric Multivit No.203/Iron (Flintstones with Iron Tab Chew) 18 Mg Iron Tab.chew 36 MG PO DAILY, TAB TAKES 2 (18MG) TABS Potassium Chloride (Klor-Con M10) 10 Meq Tab.er.prt 10 MEQ PO DAILY Rivaroxaban (Xarelto) 20 Mg Tablet 20 MG PO 1800, TAB Ubidecarenone (Co Q-10) 400 Mg Capsule 400 MG PO DAILY, CAP Vit B2/Niacin/B-6/B-12/D-Panth (B Complex Sublingual Liquid) 20-1.2MG/1 Liquid 1.2 MG PO DAILY Zinc Gluconate (Zinc) 30 Mg Tablet 30 MG PO, TAB ZAYNAB MCKEON MD FACP FAC CCDS July 29, 2022 13:48
--- NOTE | 2022-07-29 13:48 | Discharge Inst-Post CATH ---
Discharge Inst-CATH/EP Post Cardiac Cath/EP D/C Inst Follow Up/Plan F/u with Dr Templeton in 3-4 weeks ACTIVITY * Go Home directly and rest. * Limit activity of the leg (or wrist if it was used) for 7 days including aerobics, swimming, jogging, bicycling, etc. * Restrict stair-climbing for 7 days if possible, if not, climb up with your n on-cath leg, then bring together on the same step. * Avoid lifting, pushing, pulling or excessive movement of the affected ex tremity for 7 days. * Customary sexual activity may be resumed after 2 days-use caution not to use a position that strains or causes pain to the affected extremity. * No driving for 24 hours. * NO SMOKING. * Avoid straining for bowel movements for 7 days. * Gentle walking on level ground is allowed. * Returning to work will depend on the type of procedure and the results. Your doctor will discuss this with you. CALL YOUR DOCTOR FOR ANY OF THE FOLLOWING: *If bleeding from the puncture site occurs- Apply gentle pressure to site with clean cloth and call your doctor or EMS. * If a knot or lump forms under the skin, increases in size, or causes pain. * If bruising appears to be worsening or moving further down your leg instead of disappearing. * Temperature above 101 F. CARE OF YOUR GROIN INCISION; * Bruising or purple discoloration of the skin near the puncture site is common. * You may shower only, no bathtub bathing for 5 days. Be careful to avoid slipping as your leg may feel stiff. * If a closure device was used on your femoral artery, please see the attached guide regarding care of the device and your leg. * Leave dressing on FOR 24 hours. CARE OF YOUR WRIST INCISION; * Bruising or purple discoloration of the skin near the puncture site is common. * You may shower. * DO NOT submerge wrist. * Leave dressing on FOR 24 hours. ZAYNAB TEMPLETON MD FACP FAC CCDS July 29, 2022 13:48
== END 2022-07-29 17:00 | disposition home or self-care (01) ==
LOC: CATH 10:48 → SDC 14:21 → CATH 17:00
PROVIDERS: ATTEND Internal Medicine Cardiovascular Disease
DX: R07.89 Other chest pain (principal); R94.39 Abnormal result of other cardiovascular function study; E66.9 Obesity, unspecified; I48.0 Paroxysmal atrial fibrillation; R22.43 Localized swelling, mass and lump, lower limb, bilateral; J45.909 Unspecified asthma, uncomplicated; I10 Essential (primary) hypertension; G89.29 Other chronic pain; M54.16 Radiculopathy, lumbar region; R53.1 Weakness; G40.909 Epilepsy, unspecified, not intractable, without status epilepticus; Z68.41 Body mass index [BMI] 40.0-44.9, adult; Z86.16 Personal history of COVID-19; Z87.81 Personal history of (healed) traumatic fracture; Z98.84 Bariatric surgery status
CPT/HCPCS: 80053; 85027; 85610; 85730; 87081; 93005; 93458; C1894; 36415

== ENCOUNTER 2023-02-03 14:23 | Observation (INO) | payer MEDICARE, OTHER ==
[~2023-02-03] VITALS: Ht 160 cm; Wt 111.9 kg
[~2023-02-03 14:23] MED LIST changes: +ALBU8.5H6; +ASCO100024 PO; +CALC-722 PO; +CHOL500044 PO; +DICL20GE TP; +DILT240C91 PO; +ESTR1TAB24 PO; +GABA300C PO; +GBPN600T PO; +HYDR-3820 PO; +LEVA1.2543 PO; +LISI20TA26 PO; +LORA10TA7 PO; +OMEG12002 PO; +PEDI18TA7 PO; +POTA-164 PO; +RIVA20TA PO; +UBID400C8 PO; +VIT59LIQ PO; +ZINC30TA2 PO; +ZINC50TA51 PO
[2023-02-03 14:44] LABS: BASOPHILS % (AUTO) 0 % (0-10); EOSINOPHILS # (AUTO) 0.1 10^3/uL (0.0-0.3); EOSINOPHILS % (AUTO) 1 % (0-10); HEMATOCRIT 42 % (35-52); HEMOGLOBIN 13.6 g/dL (11.5-16.0); LYMPHOCYTES # (AUTO) 2.8 10^3/uL (1.0-4.0); LYMPHOCYTES % (AUTO) 31 % (12-44); MEAN CORPUSCULAR HEMOGLOBIN 30 pg (25-34); MEAN CORPUSCULAR HGB CONC 33 g/dL (32-36); MEAN CORPUSCULAR VOLUME 93 fL (80-99); MEAN PLATELET VOLUME 9.2 fL (9.0-12.2); MONOCYTES # (AUTO) 0.6 10^3/uL (0.0-1.0); MONOCYTES % (AUTO) 7 % (0-12); NEUTROPHILS # (AUTO) 5.4 10^3/uL (1.8-7.8); NEUTROPHILS % (AUTO) 61 % (42-75); PLATELET COUNT 333 10^3/uL (130-400); WHITE BLOOD COUNT 8.8 10^3/uL (4.3-11.0)
[2023-02-03] MEDS ORDERED: NS IV 500 ML 500 ML IV ONE ×2 (14:45→16:00)
[2023-02-03] MEDS ORDERED: dilTIAZem DRIP PRE-MIX 125 ML IV SCH (14:45)
[2023-02-03 14:56] LABS: CALCIUM 9.3 MG/DL (8.5-10.1)
[2023-02-03 15:01] LABS: CREATININE SERUM 0.86 MG/DL (0.60-1.30)
[2023-02-03 15:03] LABS: MAGNESIUM 2.3 MG/DL (1.6-2.4)
--- NOTE | 2023-02-03 15:06 | ED Cardiac General ---
History of Present Illness General Chief Complaint: Cardiac/General Problems Stated Complaint: RAPID HEART RATE Nursing Triage Note: PT AMBULATORY TO ER. REPORTS NOTICIED RAPID HEART RATE EARLIER TODAY. PT STARTED CELEBREX TODAY, RX BY DR MCKEON IN [place]. PT REPORTS AN EPISODE OF A-FIB IN MAY, SELF-CONVERTED BY TO NSR BEFORE ANY INTERVENTIONS PERFORMED IN ER. PT DENIES ANY CP. Source: patient, old records Exam Limitations: no limitations History of Present Illness Date Seen by Provider: Feb 03, 2023 Time Seen by Provider: 14:32 Initial Comments This is a 62-year-old woman with 1 prior history of atrial fibrillation or flutter with RVR in May of this year presents to the emergency room with a narrow complex tachycardia and heart rate around 133. Rhythm appears to be atrial flutter on the monitor. She notes that this tachycardia started around 1100 when she got off an exercise bike at physical therapy. She also notes r eceiving steroid injections in her knees yesterday and is starting on Celebrex this morning. She had been to see Dr. Mckeon for a rheumatology appointment yesterday when she had these interventions done. She does not have any significant chest pain or dyspnea. Dr. Mancini is her lock setter and Dr. Rivers is her primary care provider. Allergies and Home Medications Allergies Coded Allergies: Iodinated Contrast Media (Unverified Allergy, Mild, AIRWAY PROBLEMS, 07/26/09) Shellfish (Unverified Allergy, Mild, AIRWAY PROBLEMS, 07/26/09) meperidine (Verified Allergy, Mild, HIVES, 07/26/09) morphine (Verified Allergy, Mild, HIVES, 07/26/09) ciprofloxacin (Verified Allergy, Unknown, 11/17/14) latex (Unverified Allergy, Unknown, 04/28/07) meperidine HCl (Unverified Allergy, Unknown, 10/24/10) methocarbamol (Unverified Allergy, Unknown, 10/16/21) hydroxyzine (Unverified Adverse Reaction, Mild, HYPERACTIVE, 07/26/09) Patient Home Medication List Albuterol Sulfate (Ventolin Hfa) 1 Puff Puff, 1 PUFF INH PRN, (Reported) Entered as Reported by: MELANIE SCHULTZ on 10/16/21 1500 Ascorbic Acid (Vitamin C) 1,000 Mg Tablet, 1,000 MG PO DAILY, (Reported) Entered as Reported by: DU LAURA on 07/29/22 1150 Calcium Carb & Citrate/Vit D3 (Citracal + D ER Tablet) 600MG-12.5 Tablet.er, 2 EACH PO DAILY, (Reported) Entered as Reported by: DU LAURA on 07/29/22 1154 Carbamazepine (Carbamazepine) 200 Mg Tablet, 600 MG PO HS, (Reported) Entered as Reported by: JAMAL FONG on 12/07/14 1454 Cholecalciferol (Vitamin D3) (Vitamin D3) 125 Mcg (5000 Unit) Tablet, 125 MCG PO DAILY, (Reported) Entered as Reported by: DU LAURA on 07/29/22 1153 Diclofenac Sodium (Voltaren Arthritis Pain) 1 % Gel..gram., 1 APPLIC TP DAILY PRN for PAIN, (Reported) Entered as Reported by: DU LAURA on 07/29/22 1158 Diltiazem HCl (Diltiazem 24Hr ER) 240 Mg Cap.er.24h, 240 MG PO DAILY, (Reported) Entered as Reported by: DU LAURA on 07/29/22 1142 Estradiol (Estradiol Tablet) 1 Mg Tablet, 1 MG PO DAILY, (Reported) Entered as Reported by: DU LAURA on 07/29/22 1144 Fluticasone/Salmeterol (Advair 250-50 Diskus) 250 Mcg-50 Mcg/Dose Blst.w.dev, 1 EACH IH BID, (Reported) Entered as Reported by: MELANIE SCHULTZ on 10/16/21 1500 Furosemide (Furosemide) 40 Mg Tablet, 40 MG PO DAILY, (Reported) Entered as Reported by: MELANIE SCHULTZ on 10/16/21 1458 Gabapentin (Gabapentin) 600 Mg Tablet, 600 MG PO BID, (Reported) Entered as Reported by: DU LAURA on 07/29/22 1140 Gabapentin (Neurontin) 300 Mg Capsule, 300 MG PO BID, (Reported) Entered as Reported by: DU LAURA on 07/29/22 1140 Hydrocodone/Acetaminophen (Hydrocodone-Acetamin 10-325 mg) 10 Mg-325 Mg Tablet, 1 EA PO Q4H PRN for PAIN-MODERATE (5-7), (Reported) Entered as Reported by: DU LAURA on 07/29/22 1148 Levalbuterol HCl (Levalbuterol HCl) 1.25 Mg/3 Ml Vial.neb, 1 VIAL PO Q6H PRN for SHORTNESS OF BREATH, (Reported) Entered as Reported by: DU LAURA on 07/29/22 1148 Lisinopril (Lisinopril) 20 Mg Tablet, 20 MG PO DAILY, (Reported) Entered as Reported by: DU LAURA on 07/29/22 1141 Loratadine (Loratadine) 10 Mg Tablet, 10 MG PO DAILY PRN for ALLERGIES, (Reported) Entered as Reported by: DU LAURA on 07/29/22 1157 Meloxicam (Meloxicam) 15 Mg Tablet, 15 MG PO DAILY, (Reported) Entered as Reported by: MELANIE SCHULTZ on 10/16/21 1500 Montelukast Sodium (Montelukast Sodium) 10 Mg Tablet, 10 MG PO HS, (Reported) Entered as Reported by: MELANIE SCHULTZ on 10/16/21 1500 [place]-3/Dha/Epa/Fish Oil (Fish Oil 1,200 mg Softgel) 1,200 Mg (144 Mg-216 Mg) Capsule, 1,200 MG PO BID, (Reported) Entered as Reported by: DU LAURA on 07/29/22 1156 Pantoprazole Sodium (Protonix) 40 Mg Tablet.dr, 40 MG PO DAILY, (Reported) Entered as Reported by: JAMAL FONG on 12/07/14 1454 Pediatric Multivit No.203/Iron (Flintstones with Iron Tab Chew) 18 Mg Iron Tab.chew, 36 MG PO DAILY, (Reported) Entered as Reported by: DU LAURA on 07/29/22 1152 Potassium Chloride (Klor-Con M10) 10 Meq Tab.er.prt, 10 MEQ PO DAILY, (Reported) Entered as Reported by: DU LAURA on 07/29/22 1143 Rivaroxaban (Xarelto) 20 Mg Tablet, 20 MG PO 1800, (Reported) Entered as Reported by: DU LAURA on 07/29/22 1145 Ubidecarenone (Co Q-10) 400 Mg Capsule, 400 MG PO DAILY, (Reported) Entered as Reported by: DU LAURA on 07/29/22 1157 Vit B2/Niacin/B-6/B-12/D-Panth (B Complex Sublingual Liquid) 20-1.2MG/1 Liquid, 1.2 MG PO DAILY, (Reported) Entered as Reported by: DU LAURA on 07/29/22 1152 Zinc Gluconate (Zinc) 30 Mg Tablet, 30 MG PO, (Reported) Entered as Reported by: DU LAURA on 07/29/22 1204 Past Ekirzez-Svamxl-Lxuwwd Hx Patient Social History Tobacco Use?: No Substance use?: No Alcohol Use?: No Pt feels they are or have been: No Immunizations Up To Date Tetanus Booster (TDap): Less than 5yrs PED Vaccines UTD: Yes First/Initial COVID19 Vaccinat: DENIES Seasonal Allergies Seasonal Allergies: Yes Past Medical History Surgery/Hospitalization HX: SEE ATTATCHED LIST Surgeries: Yes (GASTRIC BANDING, HEMORRHIOD, RIGHT ANKLE X5) Gallbladder, Hysterectomy, Orthopedic Respiratory: Yes Asthma Cardiac: Yes Hypertension Neurological: Yes (LAST SEIZURE 2000) Seizure Disorder Reproductive Disorders: Yes 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 Sexually Transmitted Disease: No Genitourinary: No Gastrointestinal: Yes (GASTRIC BANDING) Gastroesophageal Reflux Musculoskeletal: Yes (R LEG SEVERAL) Arthritis, Fractures Endocrine: No HEENT: No Cancer: No Psychosocial: No Integumentary: No Blood Disorders: No Adverse Reaction/Blood Tranf: No Family Medical History Arthritis G8 SISTER Diabetes mellitus 19 FATHER Hypertension 19 FATHER 19 MOTHER G8 BROTHER G8 SISTER Myocardial infarction 19 FATHER Thyroid disease 19 FATHER No Pertinent Family Hx Physical Exam Vital Signs Vital Signs - First Documented 02/03/23 14:25 Temp 36.6 Pulse 130 Resp 16 B/P (MAP) 126/67 (86) Pulse Ox 98 O2 Delivery Room Air Capillary Refill : Height, Weight, BMI Height: 5'4.00" Weight: 225lbs. 0.0oz. 102.550198pm; 42.00 BMI Method: Progress/Results/Core Measures Results/Orders Lab Results Laboratory Tests Test 02/03/23 14:32 Range/Units White Blood Count 8.8 4.3-11.0 10^3/uL Red Blood Count 4.51 3.80-5.11 10^6/uL Hemoglobin 13.6 11.5-16.0 g/dL Hematocrit 42 35-52 % Mean Corpuscular Volume 93 80-99 fL Mean Corpuscular Hemoglobin 30 25-34 pg Mean Corpuscular Hemoglobin Concent 33 32-36 g/dL Red Cell Distribution Width 12.8 10.0-14.5 % Platelet Count 333 130-400 10^3/uL Mean Platelet Volume 9.2 9.0-12.2 fL Immature Granulocyte % (Auto) 0 % Neutrophils (%) (Auto) 61 42-75 % Lymphocytes (%) (Auto) 31 12-44 % Monocytes (%) (Auto) 7 0-12 % Eosinophils (%) (Auto) 1 0-10 % Basophils (%) (Auto) 0 0-10 % Neutrophils # (Auto) 5.4 1.8-7.8 10^3/uL Lymphocytes # (Auto) 2.8 1.0-4.0 10^3/uL Monocytes # (Auto) 0.6 0.0-1.0 10^3/uL Eosinophils # (Auto) 0.1 0.0-0.3 10^3/uL Basophils # (Auto) 0.0 0.0-0.1 10^3/uL Immature Granulocyte # (Auto) 0.0 0.0-0.1 10^3/uL Sodium Level 132 L 135-145 MMOL/L Potassium Level 4.0 3.6-5.0 MMOL/L Chloride Level 96 L 98-107 MMOL/L Carbon Dioxide Level 23 21-32 MMOL/L Anion Gap 13 5-14 MMOL/L Blood Urea Nitrogen 25 H 7-18 MG/DL Creatinine 0.86 0.60-1.30 MG/DL Estimat Glomerular Filtration Rate 76 BUN/Creatinine Ratio 29 Glucose Level 139 H 70-105 MG/DL Calcium Level 9.3 8.5-10.1 MG/DL Magnesium Level 2.3 1.6-2.4 MG/DL TSH [place] Testing 0.69 0.35-4.94 UIU/ML My Orders Orders - INOCENCIA LOVE MD Ekg Tracing (02/03/23 14:24) Basic Metabolic Panel (02/03/23 14:36) Cbc And Automated Diff (02/03/23 14:36) Magnesium (02/03/23 14:36) Thyroid Analyzer (02/03/23 14:36) Ed Iv/Invasive Line Start (02/03/23 14:36) Diltiazem Drip Pre-Mix (Diltiazem Drip P (02/03/23 14:45) Ns Iv 500 Ml (Ns Iv 500 Ml) (02/03/23 14:45) Ns Iv 500 Ml (Ns Iv 500 Ml) (02/03/23 16:00) Ns Iv 500 Ml (Ns Iv 500 Ml) (02/03/23 15:49) Ekg Tracing (02/03/23 16:47) Code/Resuscitation (02/03/23 17:05) Medications Given in ED Current Medications Medications Dose Ordered Sig/Devon Route Start Time Stop Time Status Last Admin Dose Admin Sodium Chloride 500 ml @ 0 mls/hr Q0M ONCE IV 02/03/23 14:45 02/03/23 14:46 DC 02/03/23 14:48 0 MLS/HR Sodium Chloride 500 ml @ 0 mls/hr Q0M ONCE IV 02/03/23 16:00 02/03/23 16:01 DC 02/03/23 15:51 0 MLS/HR Vital Signs/I&O 02/03/23 02/03/23 02/03/23 14:25 14:52 15:00 Temp 36.6 Pulse 130 130 126 Resp 16 B/P (MAP) 126/67 (86) 105/71 105/71 (82) Pulse Ox 98 97 O2 Delivery Room Air Room Air Blood Pressure Mean: 82 Initial ECG Impression Date: Feb 03, 2023 Initial ECG Impression Time: 14:31 Initial ECG Rate: 130 Initial ECG Rhythm: A Fib/Flutter Comment Atrial flutter with RVR. No ST elevation or depression. Left axis deviation. No other abnormal intervals. EKG : EKG Time: 14:31 Rate: 68 Rhythm: A Fib/Flutter Comment Rate controlled atrial flutter with no ST elevation or depression. Left axis deviation. No other abnormal intervals. This ECG demonstrates controlled rate after initiating Cardizem drip. Departure Communication (Admissions) Time/Spoke to Admitting Phy: 16:49 Dr. Arthur Time/Spoke to Consulting Phy: 16:43 Dr. Kraus Impression Primary Impression: Atrial flutter with rapid ventricular response Disposition: ADMITTED INPATIENT Condition: Stable Admissions Decision to Admit Reason: Admit from ER (General) Decision to Admit/Date: Feb 03, 2023 Time/Decision to Admit Time: 16:43 Departure-Patient Inst. Referrals: MARLIN MCKEON MD (PCP/Family) Primary Care Physician INOCENCIA LOVE MD Feb 03, 2023 15:05
[2023-02-03 15:23] LABS: TSH (THYROID ANALYZER) 0.69 UIU/ML (0.35-4.94)
[2023-02-03] MEDS ORDERED: NS IV 500 ML 500 ML ONE (15:49)
[2023-02-03] MEDS ORDERED: BISACODYL 10 MG SUPPOSITORY PR PRN (18:00)
[2023-02-03] MEDS ORDERED: LACTULOSE SYRUP 10GM/15ML 30ML UDC PO PRN (18:00)
[2023-02-03] MEDS ORDERED: MELATONIN 3 MG TABLET PO PRN (18:00)
[2023-02-03] MEDS ORDERED: ACETAMINOPHEN 325 MG TABLET PO PRN (18:00)
[2023-02-03] MEDS ORDERED: CALCIUM CARBONATE 500 MG CHEW TABLET PO PRN (18:00)
[2023-02-03] MEDS ORDERED: ONDANSETRON INJECTION 4 MG/2 ML (SDV) IV PRN (18:00)
[2023-02-03] MEDS ORDERED: PATIENT MAY USE OWN MEDS, ALL MC SCH (18:00)
[2023-02-03] MEDS ORDERED: ANTACID SUSPENSION 30 ML UDC PO PRN (18:00)
[2023-02-03] MEDS ORDERED: MILK OF MAGNESIA 400 MG/5 ML 30 ML UDC PO PRN (18:00)
[2023-02-03] MEDS ORDERED: ONDANSETRON 4 MG ORAL DISSOLVE TABLET PO PRN (18:00)
[2023-02-03] MEDS ORDERED: RIVAROXABAN 20 MG TABLET PO SCH (18:30)
[2023-02-03] MEDS: dilTIAZem DRIP PRE-MIX 125 ML IV SCH ×2 (19:13→21:48)
[2023-02-03] MEDS ORDERED: NS IV 500 ML 500 ML IV PRN (19:30)
[2023-02-03] MEDS ORDERED: FLUC150T41 PO (19:32)
[2023-02-03] MEDS ORDERED: CELE50CA PO (19:36)
[2023-02-03] MEDS: SENNOSIDES 8.6 MG TABLET PO SCH (21:09)
[2023-02-04 04:10] LABS: HEMATOCRIT 37 % (35-52); HEMOGLOBIN 12.3 g/dL (11.5-16.0); MEAN CORPUSCULAR HEMOGLOBIN 30 pg (25-34); MEAN CORPUSCULAR HGB CONC 33 g/dL (32-36); MEAN CORPUSCULAR VOLUME 91 fL (80-99); MEAN PLATELET VOLUME 9.4 fL (9.0-12.2); PLATELET COUNT 296 10^3/uL (130-400); WHITE BLOOD COUNT 7.3 10^3/uL (4.3-11.0)
[2023-02-04 04:38] LABS: POTASSIUM 4.2 MMOL/L (3.6-5.0)
[2023-02-04 04:39] LABS: CALCIUM 8.8 MG/DL (8.5-10.1)
[2023-02-04 04:43] LABS: CREATININE SERUM 0.69 MG/DL (0.60-1.30)
[2023-02-04] MEDS ORDERED: MAGNESIUM 1 GM/100 ML IVPB 100 ML IV SCH (06:00)
[2023-02-04] MEDS ORDERED: POTASSIUM CL 10MEQ/50ML IVPB 50 ML IV SCH (06:00)
[2023-02-04] MEDS ORDERED: POTASSIUM CHLORIDE 20 MEQ TABLET PO SCH (06:00)
[2023-02-04] MEDS: dilTIAZem DRIP PRE-MIX 125 ML IV SCH (08:28)
[2023-02-04] MEDS ORDERED: proPOfol INJECTION 200 MG/20 ML VIAL IV ONE (09:04)
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
--- NOTE | 2023-02-04 09:15 | Cardiac Procedure Note-CS/ASA ---
Pre-Procedure Note Pre-Op Procedure Note Date of Available H&P: Feb 04, 2023 Date H&P Reviewed: Feb 04, 2023 Time H&P Reviewed: 09:15 History & Physical: H&P Reviewed, Patient Examed, No changes noted Pre-Operative Diagnosis: a fib Moderate Sedation PreProcedure Time 09:15 ASA Score 3 Airway Lungs Heart ASA score ASA 1: a normal healthy patient ASA 2: a patient with a mild systemic disease (mid diabetes, controlled hypertension, obesity ASA 3: a patient with a severe systemic disease that limits activity (angina, COPD, prior Myocardial infarction) ASA 4: a patient with an incapacitating disease that is a constant threat to life (CHF, renal failure) ASA 5: a moribund patient not expected to survive 24 hrs. (ruptured aneurysm) ASA 6: a declared brain- patient whose organs are being harvested. For emergent operations, add the letter E after the classification Mallampati Classification Grade 3 Sedation Plan Analgesia, Amnesia, Plan communicated to team members, Discussed options with patient/fam, Discussed risks with patient/fam The patient is an appropriate candidate to undergo the planned procedure, sedation, and anesthesia. The patient immediately re-assessed prior to indication. SHAILESH LANDA MD Feb 04, 2023 09:15
[2023-02-04] MEDS: SENNOSIDES 8.6 MG TABLET PO SCH (09:36)
--- NOTE | 2023-02-04 09:37 | Cardioversion ---
Cardioversion PROCEDURE PHYSICIAN: Shailesh Kraus DATE OF PROCEDURE: 02/04/23 DIRECT EXTERNAL ELECTRICAL CARDIOVERSION: Indications: Atrial Fibrillation with rapid ventricular rate Preoperative diagnoses: Atrial Fibrillation with rapid ventricular rate Postoperative diagnosis: Sinus rhythm, Successful Electrical Cardioversion History: 62-year-old lady with paroxysmal atrial fibrillation admitted with atrial fibrillation rapid ventricular response, started on Cardizem drip, has been maintained on oral anticoagulation with Xarelto, did not miss or skip any doses. Cardioversion was advised Anesthesia: By Anesthesia services Complications: None Specimen: None Contrast: 0 Flouroscopy: none Procedure Details: The patient was brought the veterinarian laboratory animal care after informed consent was taken, all the risks and complications were explained including the risk of stroke. Electrical cardioversion was carried out with anesthesia support with propofol. 120 joules of synchronized shock was delivered through external patches which promptly restored sinus rhythm. The patient tolerated the procedure well. Conclusions: Successful electrical cardioversion terminating atrial fibrillation I will start patient on flecainide 50 mg twice daily SHAILESH KRAUS MD Feb 04, 2023 09:37
--- NOTE | 2023-02-04 09:42 | Anesthesia-General Post-Op ---
MAC Patient Condition Mental Status/LOC: Same as Preop Cardiovascular: Satisfactory Nausea/Vomiting: Absent Respiratory: Satisfactory Pain: Controlled Complications: Absent Post Op Complications Complications None Follow Up Care/Instructions Patient Instructions None needed. Anesthesiology Discharge Order Discharge Order Patient is doing well, no complaints, stable vital signs, no apparent adverse anesthesia problems. No complications reported per nursing. DAQUAN CUBA CRNA Feb 04, 2023 09:42
[2023-02-04] MEDS ORDERED: RIVAROXABAN 20 MG TABLET PO SCH ×2 (09:45→18:00)
[2023-02-04] MEDS ORDERED: dilTIAZem ER 240 MG CAPSULE PO SCH (09:45)
[2023-02-04] MEDS ORDERED: FLECAINIDE 100 MG TABLET PO SCH (09:45)
[2023-02-04] MEDS ORDERED: FUROSEMIDE 40 MG TABLET PO SCH ×2 (09:45→12:00)
--- NOTE | 2023-02-04 09:56 | Short Stay Summary-Hospitalist ---
MIGUEL ANGEL CABRALES 02/04/23 0956: History of Present Illness HPI/Chief Complaint Pt is a 62 y/o female who presented to the ER yesterday with "heart fluttering" palpitations and tachycardia that started suddenly around 11 AM that day. Notes that she normally takes her pulse at home and it was around 133 when she checked it. Denies any chest pain or SOB. She has had one epiosde of Afib in May of this year where she went to the ER and converted to sinus rhythm without any interventions. Was started on xarelto and diltiazem at that time. She denies eneida r missing a dose for her xarelto. She reports that 2 days ago she saw a hr operations advisor, Dr. Mckeon, for the first time for corticosteroid shots in her knee and shoulder. She reports various joint pains and Dr. Mckeon has taken labs from her. EKG in ER showed atrial/flutter/Afib with RVR. No ST segment elevation or depression. L axis deviation. EKG followed initiation of cardizem drip in ER showed rate control. Source: patient Exam Limitations: no limitations Date Seen 02/04/23 Time Seen by a Provider: 09:56 Attending Physician Chao Montesinos MD PCP Admitting Physician: Irving Arthur MD Attending Physician: Irving Arthur MD Referring Physician Date of Admission Feb 03, 2023 at 17:21 Home Medications & Allergies Home Medications Reviewed patient Home Medication Reconciliation performed by pharmacy medication reconciliations tire technician and/or nursing. Patients Allergies have been reviewed. Allergies Allergies Coded Allergies Iodinated Contrast Media (Unverified Allergy, Mild, AIRWAY PROBLEMS, 07/26/09) Shellfish (Unverified Allergy, Mild, AIRWAY PROBLEMS, 07/26/09) meperidine (Verified Allergy, Mild, HIVES, 07/26/09) morphine (Verified Allergy, Mild, HIVES, 07/26/09) ciprofloxacin (Verified Allergy, Unknown, 11/17/14) latex (Unverified Allergy, Unknown, 04/28/07) meperidine HCl (Unverified Allergy, Unknown, 10/24/10) methocarbamol (Unverified Allergy, Unknown, 10/16/21) hydroxyzine (Unverified Adverse Reaction, Mild, HYPERACTIVE, 07/26/09) Past Medical/Social/Family Hx Patient Social History Marrital Status: Employed/Student: employed Tobacco Use?: No Use of E-Cig and/or Vaping dev: No Substance use?: Yes Substance type: Caffeine 1-2 CUPS OF COFFEE/DAY Substance frequency: Daily Alcohol Use?: Yes Alcohol type: Beer Alcohol Frequency: Rarely Pt stated abuse/neglect: No Immunizations Up To Date Influenza Vaccine Up-to-Date: No; Not Current First/Initial COVID19 Vaccinat: DENIES Hepatitis A: Yes Hepatitis B: Yes TB Skin Test: Negative Current Status Advance Directives: No Communicates: Verbally Primary Language: [place] Preferred Spoken Language: [place] Is interpretation needed?: No Sensory deficits: Vision impairment Implanted or Applied Medical D: Other Review of Systems Constitutional: No chills, No diaphoresis, No dizziness, No fever EENTM: No hearing loss, No blurred vision, No hoarseness Respiratory: No cough, No dyspnea on exertion, No short of breath Cardiovascular: No chest pain; palpitations; No syncope Gastrointestinal: No abdominal pain, No constipation, No diarrhea, No heartburn Genitourinary: No dysuria, No frequency, No hematuria Musculoskeletal: joint pain, joint swelling (R ankle) Skin: No change in color, No pruritus, No rash Psychiatric/Neurological: Denies Headache, Denies Numbness Physical Exam Physical Exam Vital Signs Vital Signs - First Documented 02/03/23 14:25 Temp 36.6 Pulse 130 Resp 16 B/P (MAP) 126/67 (86) Pulse Ox 98 O2 Delivery Room Air Capillary Refill : Height, Weight, BMI Height: 5'4.00" Weight: 225lbs. 0.0oz. 102.094768yd; 43.71 BMI Method: General Appearance: No Apparent Distress, WD/WN Eyes: Bilateral Eye Normal Inspection, Bilateral Eye PERRL, Bilateral Eye EOMI HEENT: PERRL/EOMI, TMs Normal, Normal ENT Inspection, Pharynx Normal Neck: Normal Inspection, Non Tender, Supple Respiratory: Chest Non Tender, Normal Breath Sounds, No Accessory Muscle Use, No Respiratory Distress Cardiovascular: No Edema, No Gallop, No JVD, No Murmur, Normal Peripheral Pulses, Irregularly Irregular Gastrointestinal: Normal Bowel Sounds, Non Tender, Soft Extremity: Normal Capillary Refill, Normal Inspection, Non Tender, No Calf Tenderness, Pedal Edema (Right ankle edema) Neurologic/Psychiatric: Alert, Oriented x3, No Motor/Sensory Deficits, Normal Mood/Affect Skin: Normal Color, Warm/Dry Lymphatic: No Adenopathy Results Results/Procedures Labs Laboratory Tests 02/03/23 14:32 02/04/23 03:20 Patient resulted labs reviewed. Short Stay Diagnosis Discharge Diagnosis-Short Stay Admission Diagnosis Atrial flutter/Afib with RVR Final Discharge Diagnosis Afib with RVR Conclusion Plan Afib with RVR - Rate control with diltiazem drip 5 mg/hr - Cardioversion done today with Dr. Kraus - Continue Xarelto 20 mg PO/d - Will start flecainide 50 mg BID PO HTN - Continue lisinopril 20 mg PO/d Asthma - Well controlled with albuterol, levalbuterol, and montelukast IRVING ARTHUR MD 02/06/232026: Short Stay Diagnosis Conclusion Plan Patient admitted with atrial fibrillationwith rapid ventricular rate. She necessitated a cardizem gtt which helped her rate but she remained in atrial fibrillation. Cardiology was consulted and performed a cardioversion which returned her to sinus rhythm. Flecainide was added to her regimen. She was able to be discharge home in stable and improved conditionto follow up with her primary care doctor and educational therapy teacher. Supervisory-Addendum Brief Verification & Attestation Participated in pt care: history, MDM, physical Personally performed: exam, history, MDM, supervision of care Care discussed with: Medical Student Procedures: n/a Results interpretation: Verified all documentation Verification and Attestation of Medical Student E/M Service A medical student performed and documented this service in my presence. I reviewed and verified all information documented by the medical student and made modifications to such information, when appropriate. I personally performed the physical exam and medical decision making. Irving Arthur, Feb 06, 2023,20:25 MIGUEL ANGEL CABRALES Feb 04, 2023 09:56 IRVING ARTHUR MD Feb 06, 2023 20:27
[2023-02-04] MEDS ORDERED: TURM500T PO (11:17)
[2023-02-04] MEDS ORDERED: ZINC50TA11 PO (11:17)
[2023-02-04] MEDS ORDERED: UBID100C17 PO (11:17)
[2023-02-04] MEDS ORDERED: CYAN100081 SL (11:17)
[2023-02-04] MEDS ORDERED: GABA300C PO (11:17)
[2023-02-04] MEDS ORDERED: GBPN600T PO (11:17)
--- NOTE | 2023-02-04 12:03 | Discharge Inst-Simple/Standard ---
Discharge Inst-Standard Discharge Medications New, Converted or Re-Newed RX: Transmitted to Pharmacy Patient Instructions/Follow Up Plan of Care/Instructions/FU: Please continue to take your medications as written. please follow upw ith your PCP to follow up this hospital stay. Activity as Tolerated: Yes Discharge Diet: No Restrictions, Cardiac Diet Return to The Hospital For: Chest pain, heart racing, shortness of breath, abd pain, weakness, if you feel you are getting worse. IRVING DORANTES MD Feb 04, 2023 12:02
[2023-02-04] MEDS ORDERED: FLEC100T PO (15:24)
[2023-02-04 15:50] VITALS: BP 138/84
[2023-02-05] MEDS ORDERED: dilTIAZem ER 240 MG CAPSULE PO SCH (09:00)
[2023-02-05] MEDS ORDERED: FUROSEMIDE 40 MG TABLET PO SCH (09:00)
== END 2023-02-04 15:50 | disposition home or self-care (01) ==
LOC: EDUNIT# 14:23 → ER 14:25 → ICU 17:21
PROVIDERS: ADMIT Family Medicine; ATTEND Family Medicine
DX: I48.0 Paroxysmal atrial fibrillation (principal); I10 Essential (primary) hypertension; J45.909 Unspecified asthma, uncomplicated; G40.909 Epilepsy, unspecified, not intractable, without status epilepticus; R60.0 Localized edema; M25.571 Pain in right ankle and joints of right foot; Z98.84 Bariatric surgery status
CPT/HCPCS: 80048 ×2; 83735 ×2; 84443; 85025; 85027; 87081; 93005 ×2; 96365; 96374; 96376; 99284; G0378; 36415